=== PATIENT | male | born 1945 | race Caucasian/White ===

== ENCOUNTER → 2017-04-24 | Outpatient (CLI) | payer OTHER ==
[~2017-04-24] MED LIST: CLOT-40 TOP; FINA5TAB4 PO; GABA1CAP PO; INSHI7030 SC; INSUINJ17 SC; LISI-725 PO; METO25TA56 PO; NITR0.4S UT; NRV/5 PO; PRAV40TA2 PO; PRLSR20 PO; WARF10TA4 PO; WARF7.5T4 PO
[2017-04-24 18:15] LABS: CHOLESTEROL/HDL RATIO 5.4; THYROID STIMULATING HORMONE 0.679 uIu/ml (0.300-4.500)
[2017-04-25 08:01] LABS: ESTIMATED AVERAGE GLUCOSE 214 mg/dl; HA1C FLAG Normal (Normal)
== END | disposition home or self-care (01) ==
LOC: C.LABMFLN 13:26
PROVIDERS: ATTEND Family Medicine
DX: I10 Essential (primary) hypertension (principal); E11.9 Type 2 diabetes mellitus without complications; I35.0 Nonrheumatic aortic (valve) stenosis; I65.29 Occlusion and stenosis of unspecified carotid artery; Z86.718 Personal history of other venous thrombosis and embolism

== ENCOUNTER → 2017-06-13 | Outpatient (CLI) | payer OTHER ==
[~2017-06-13] MED LIST changes: -CLOT-40 TOP; +CLOT1CRE4 TOP
[2017-06-13 18:15] LABS: BLOOD UREA NITROGEN 16 mg/dl (7-18); BUN/CREATININE RATIO 16.5 (10-20); CALCIUM 9.7 mg/dl (8.5-10.1); CARBON DIOXIDE 31 mmol/L (21-32); CHLORIDE 100 mmol/L (98-107); CREATININE 0.97 mg/dl (0.60-1.40); GLUCOSE 222 mg/dl (70-99); POTASSIUM 4.3 mmol/L (3.5-5.1); SODIUM 137 mmol/L (136-145)
== END | disposition home or self-care (01) ==
LOC: C.LABMFLN 12:27
PROVIDERS: ATTEND Family Medicine
DX: I10 Essential (primary) hypertension (principal); E11.9 Type 2 diabetes mellitus without complications; E78.00 Pure hypercholesterolemia, unspecified; E11.21 Type 2 diabetes mellitus with diabetic nephropathy; I82.4Z9 Acute embolism and thrombosis of unspecified deep veins of unspecified distal lower extremity

== ENCOUNTER → 2017-06-27 | Outpatient (CLI) | payer OTHER ==
[2017-06-27 18:50] LABS: URINE PROTIEN/CREAT RATIO 3.3 (0-0.2); URINE TOTAL PROTEIN 234.3 mg/dl (0-11.9)
[2017-06-27 18:59] LABS: URINE APPEARANCE CLEAR (CLEAR); URINE BILIRUBIN NEG (NEG); URINE COLOR YELLOW; URINE EPITHELIAL CELL AUTO 0-5 /lpf (0-5); URINE NITRITE NEG (NEG); URINE PH 6.5 (4.5-7.5); URINE SPECIFIC GRAVITY 1.021 (1.000-1.030); UROBILINOGEN NEG (NEG)
[2017-06-27 19:05] LABS: MANUAL MICROSCOPIC REQUIRED? NO; REVIEW REQ? NO
[2017-07-01 10:53] LABS: FREE KAPPA 26.1 MG/L (3.3-19.4); FREE KAPPA/LAMBDA RATIO 1.18 (0.26-1.65); FREE LAMBDA 22.2 MG/L (5.7-26.3)
[2017-07-01 15:30] LABS: ALBUMIN 4.1 G/DL (3.8-4.8); GAMMA GLOBULIN 0.9 G/DL (0.8-1.7)
[2017-07-02 05:39] LABS: ALBUMIN % 73.59 %; ALPHA-2-GLOBULIN % 4.31 %; BETA GLOBULIN % 9.35 %; CREATININE UR 79 MG/DL (20-370); GAMMA GLOBULIN % 6.95 %
== END | disposition home or self-care (01) ==
LOC: C.LABMFLN 11:47
PROVIDERS: ATTEND Internal Medicine Nephrology
DX: R80.9 Proteinuria, unspecified (principal); I82.4Z9 Acute embolism and thrombosis of unspecified deep veins of unspecified distal lower extremity

== ENCOUNTER → 2018-01-14 | Outpatient (CLI) | payer OTHER ==
[~2018-01-14] MED LIST changes: +CLOT-51 TOP; -CLOT1CRE4 TOP; +GABA100C13 PO; -GABA1CAP PO
[2018-01-14 19:01] LABS: ALBUMIN 3.8 gm/dl (3.4-5.0); ALT/SGPT 21 U/L (12-78); AST/SGOT 11 U/L (15-37); BLOOD UREA NITROGEN 40 mg/dl (7-18); CALCIUM 10.2 mg/dl (8.5-10.1); CARBON DIOXIDE 32 mmol/L (21-32); CHOLESTEROL 151 mg/dl (0-200); CREATININE 1.18 mg/dl (0.60-1.40); GLUCOSE 149 mg/dl (70-99); POTASSIUM 4.6 mmol/L (3.5-5.1); SODIUM 138 mmol/L (136-145)
[2018-01-14 19:04] LABS: ALKALINE PHOSPHATASE 85 U/L (45-117); LDL CHOLESTEROL (DIRECT) 76 mg/dl; TOTAL PROTEIN 7.7 gm/dl (6.4-8.2)
== END | disposition home or self-care (01) ==
LOC: C.LABMFLN 10:49
PROVIDERS: ATTEND Family Medicine
DX: E11.9 Type 2 diabetes mellitus without complications (principal); E78.00 Pure hypercholesterolemia, unspecified; K21.9 Gastro-esophageal reflux disease without esophagitis; R93.5 Abnormal findings on diagnostic imaging of other abdominal regions, including retroperitoneum; I10 Essential (primary) hypertension

== ENCOUNTER 2022-04-02 21:12 | Observation (INO) ==
[2022-04-02] MEDS ORDERED: CEFEPIME 2,000 MG/20 ML VIAL IV STA (21:50)
[2022-04-02] MEDS ORDERED: ACETAMINOPHEN 500 MG TAB PO STA (21:51)
[2022-04-02] MEDS ORDERED: SODIUM CHLORIDE 0.9% 1000ML 1,000 ML IV SCH (22:00)
--- NOTE | 2022-04-02 22:05 | Emergency Department Note ---
Impression & Plan Weakness, Fever, Pneumonia, Atrial flutter with rapid ventricular response, Hypomagnesemia ED Provider Note NAME: CANDICE SEWELL AGE: 76 SEX: M : 1945 ARRIVES VIA: Ambulance INFORMANT: [Patient] ED PROVIDER(S): [Dago Pierce MD] CHIEF COMPLAINT: Illness HISTORY OF PRESENT ILLNESS: The patient is a 76-year-old male who has had several days of weakness and fatig ue. He just has no energy. He has had a mildly productive cough and some mild shortness of breath. Today, he was noted to have a fever. There has been no tick bite, no rash. No vomiting or diarrhea. The patient was recently in the hospital for pneumonia, he was discharged from [facility] about 10 days ago. Patient states his temperature was about 101. He presents by ambulance. REVIEW OF SYSTEMS: See HPI for pertinent positives and negatives. A total of ten systems were reviewed and were otherwise negative. PMHx/PSHx: See Below SOCIAL HISTORY: See Below. PHYSICAL EXAM: GENERAL: Patient is in no acute distress. HEENT: No acute trauma, normocephalic atraumatic, mucous membranes moist, no nasal congestion, no scleral icterus. NECK: No stridor, no adenopathy, no meningismus, trachea is midline. LUNGS: Crackles and wheezes heard in the right lower lung, the left lung seems clear. No respiratory distress. HEART: Tachycardic, no obvious murmur, regular rhythm. ABDOMEN: Soft, nontender, bowel sounds positive, no peritonitis. EXTREMITIES: No cyanosis. 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 There is some mild right lower extremity edema NEUROLOGIC: Oriented x 3, no acute motor or sensory deficits, no focal weakness. SKIN: No rash, no jaundice, no diaphoresis. DIFFERENTIAL DIAGNOSIS: Sepsis, UTI, pneumonia, COVID-19, influenza, dysrhythmia, metabolic abnormality, electrolyte abnormalities, cardiac sources, cellulitis, bacteremia, intracerebral event, toxicologic etiology, neurologic event, as well as other pathologies. EMERGENCY DEPARTMENT COURSE/PROCEDURES: ECG: Indication was potential sepsis. The ECG shows a sinus tachycardia versus a rapid atrial flutter with a rate of 126. There is some nonspecific ST change. There is a potential old inferior infarct. No ST elevation, no PVCs. The QTc is 440. Repeat ECG: Indication was tachycardia. The ECG shows atrial flutter with a variable block. The rate is 101. There is no ST elevation, no PVCs. The QTc is 469. Compared to the earlier ECG, the rate has decreased and the atrial flutter rhythm is much more apparent. Continuous Cardiac Monitoring: An order was placed for continuous cardiac monitoring. The monitor shows a rate of 127 with sinus tachycardia. Critical Care Note: I have personally spent 52 minutes of critical care time in the direct management of this patient. This includes bedside care, interpretation of diagnostic studies, and testing, discussion with consultants, patient, and family members, and other required patient management activities. This 52 minutes is in excess of all separately billable procedures. MEDICAL DECISION MAKING: There is no leukocytosis. The patient has a mild anemia with a hemoglobin of 11.8. There is a normal platelet count. INR is slightly elevated at 1.3, likely from his Eliquis use. Initial glucose was recorded at 43, a repeat bedside glucose showed a value of 133. There was no renal failure. Lactic acid level was not elevated making severe sepsis less likely. Magnesium was low at 1.1. No concerning liver enzyme elevation. Procalcitonin level was not elevated. ECG shows a rapid atrial flutter, no obvious acute ischemia. There was some slight elevation to the troponin, likely secondary to mismatch. The troponin will need to be trended. Urinalysis does not show infection. Respiratory bio fire testing shows adenovirus. Lyme disease testing was positive for IgG, negative for IgM. Chest film shows what appears to be a bilateral lower lung pneumonia. On exam, the patient was febrile, he was tachycardic. The patient received IV saline, 1 L. He was given IV cefepime as antibiotic coverage. He received oral Tylenol for his fever. Patient's heart rate has improved. He is resting comfortably. He will require a hospital stay for his findings. He has a low magnesium, he is febrile, he is short of breath and coughing with potential pneumonia on x-ray. He is adenovirus positive by respiratory bio fire testing. I did speak with the case management team, the on-call hospitalist was consulted. The patient is aware of his need for a hospital stay. 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 [address] [place] Family History Brother Liver cancer Coronary heart disease Diabetes Father Cancer Diabetes Coronary heart disease Mother Diabetes Brother Coronary heart disease Myocardial infarction Denies family history of Ovarian cancer Prostate cancer Breast cancer Colorectal cancer Social History Smoking Status: Never smoker Age Started Using Tobacco: 17; Age Quit Using Tobacco: 59; packs per day: 2; Second Hand Exposure: Yes; Hx Alcohol Use: No Hx Substance Use: No Preferred Language: Bengali Communication Ability: Effective Visual Impairment: Partially Limited Hearing Ability: Use of Hearing Aid marital status: Single Current Living Situation: Alone current occupational status: retired Feels Safe at Home: Yes Childhood Exposure to Second-Hand Smoke: Yes caffeine: Yes (coffee) Dental Care, Regularly: No Physical Activity Frequency: Does not Exercise Physical Activity Frequency Comment: uses a cane Seatbelt Use: sometimes Sunscreen Use: No Do you think of yourself as: straight/heterosexual Allergies Allergies Allergy/AdvReac Type Severity Reaction Status Date / Time No Known Drug Allergies Allergy Verified 04/03/22 00:52 Home Meds Home Medications Medication Instructions Recorded Confirmed ascorbic acid (vitamin C) 1,000 mg 1 gm PO DAILY tab 04/13/19 04/02/22 tablet folic acid 800 mcg tablet 0.8 mg PO DAILY tab 04/13/19 04/02/22 aspirin 81 mg tablet,delayed 81 mg PO DAILY tab 04/17/19 04/02/22 release semaglutide 1 mg/dose (2 mg/1.5 1 mg SQ WK ml 10/05/20 04/03/22 mL) subcutaneous pen injector (Ozempic) apixaban 5 mg tablet (Eliquis) 5 mg PO BID 06/19/21 04/02/22 amoxicillin 875 mg-potassium 1 tab PO BID 03/26/22 04/02/22 clavulanate 125 mg tablet finasteride 5 mg tablet 5 mg PO DAILY 04/02/22 04/02/22 omeprazole 20 mg capsule,delayed 20 mg PO DAILY 04/02/22 04/02/22 release gabapentin 100 mg capsule 100 mg PO TID 04/03/22 04/03/22 insulin aspart U-100 100 unit/mL 18 unit SUBCUT TIDM 04/03/22 04/03/22 subcutaneous cartridge insulin degludec 200 unit/mL (3 78 unit SUBCUT HS 04/03/22 04/03/22 mL) subcutaneous pen (Tresiba FlexTouch U-200 insulin) metformin 500 mg tablet,extended 1,000 mg PO DAILYBD 04/03/22 04/03/22 release 24 hr metoprolol succinate 100 mg 50 mg PO QAM 04/03/22 04/03/22 tablet,extended release 24 hr Previous Rx's Medication Instructions Recorded insulin admin supplies #1 ea 04/17/19 lancets 30 gauge (OneTouch Delica #100 ea 12/30/19 Lancets) flash glucose scanning reader #1 ea 11/18/20 (FreeStyle [place] 14 Day [place]) flash glucose sensor (Joincube.comStyle #1 ea 11/18/20 [place] 14 Day Sensor) Left prosthetic limb K3 #1 ea 03/08/21 atorvastatin 40 mg tablet 40 mg PO DAILY #90 tab 09/05/21 Results & Data (ED) Vital Signs Vital Signs - 24 hr 04/02/22 21:18 04/02/22 22:20 04/02/22 22:43 Temperature 38.4 C H 38.4 C H Temperature Source Oral Oral Pulse Rate 127 H Pulse Rate [Right Finger] 125 H 124 H Pulse Rhythm [Right Finger] Regular Respiratory Rate 24 18 20 Respiratory Depth Normal Blood Pressure 132/74 Blood Pressure [Right Arm] 118/63 119/69 Blood Pressure Mean 93 Blood Pressure Mean [Right Arm] 81 85 Pulse Oximetry 91 90 91 Oxygen Delivery Method Room Air Room Air Room Air Sepsis Recent Fever Within 48 Hours Yes Sepsis New/Unexplained Change in Mental Status No Sepsis Action Taken by Nursing No Action Required 04/02/22 23:00 04/02/22 23:15 04/02/22 23:30 Temperature Temperature Source Pulse Rate Pulse Rate [Right Finger] 114 H 115 H 127 H Pulse Rhythm [Right Finger] Respiratory Rate 22 24 22 Respiratory Depth Blood Pressure Blood Pressure [Right Arm] 105/71 106/77 140/85 Blood Pressure Mean Blood Pressure Mean [Right Arm] 82 86 103 Pulse Oximetry 93 93 92 Oxygen Delivery Method Room Air Room Air Room Air Sepsis Recent Fever Within 48 Hours Sepsis New/Unexplained Change in Mental Status Sepsis Action Taken by Long-Term Medications Current Medication List: was personally reviewed by me Laboratory Data Attestation: I reviewed the patient's lab results. Result diagrams: 04/02/22 20:50 04/02/22 20:50 Lab Results 04/02/22 04/02/22 04/02/22 Range/Units 20:50 20:50 20:50 WBC 7.65 (4.8-10.8) K/uL RBC 4.05 L (4.7-6.1) M/uL Hgb 11.8 L (14.0-18.0) g/dL Hct 36.5 L (42-52) % MCV 90.1 (80-100) fL MCH 29.1 (25-34) pg MCHC 32.3 (32-36) g/dL RDW Std Deviation 57.2 H (36.4-46.3) fL RDW Coeff of Freda 17.3 H (11.5-14.5) % Plt Count 189 (130-400) K/uL MPV 9.7 (7.4-10.4) fL Immature Gran % (Auto) 0.1 % Neut % (Auto) 69.1 % Lymph % (Auto) 15.9 % [place] % (Auto) 14.5 % Eos % (Auto) 0.3 % Baso % (Auto) 0.1 % Neut # (Auto) 5.28 (1.4-6.5) K/uL Lymph # (Auto) 1.22 (1.2-3.4) K/uL [place] # (Auto) 1.11 H (0.11-0.59) K/uL Eos # (Auto) 0.02 (0-0.5) K/uL Baso # (Auto) 0.01 (0-0.2) K/uL Immature Gran # (Auto) 0.01 (0.00-0.02) K/uL PT 13.5 H (9.0-12.0) Seconds INR 1.3 H (0.9-1.1) APTT 38.3 H (21.0-31.0) Seconds PTT Ratio 1.4 Sodium 133 L (136-145) mmol/L Potassium 4.2 (3.5-5.1) mmol/L Chloride 101 (98-107) mmol/L Carbon Dioxide 24 (21-32) mmol/L Anion Gap 8 (3-11) BUN 23 (6-23) mg/dl Creatinine 1.26 (0.6-1.4) mg/dl Est Cr Clr Drug Dosing 57.9 ml/min Est GFR ( Amer) 64.2 ml/min Est GFR (Non-Af Amer) 55.4 ml/min BUN/Creatinine Ratio 18.3 (10-20) Glucose 43 L* (70-99(Fasting)) mg/dl POC Glucose (70-99) mg/dl Lactate (0.4-2.0) mmol/L Calcium 9.1 (8.5-10.1) mg/dl Magnesium 1.1 L (1.7-2.4) mg/dl Total Bilirubin 0.8 (0.2-1.0) mg/dl AST 26 (13-39) U/L ALT 21 (7-52) U/L Alkaline Phosphatase 62 (34-104) U/L Troponin I High Sens 25.4 H (0-20) pg/ml Total Protein 7.1 (6.0-8.3) gm/dl Albumin 3.6 (3.4-5.0) gm/dl Globulin 3.5 (2.5-4.0) gm/dl Albumin/Globulin Ratio 1.0 (0.9-2) Procalcitonin (0-0.5) ng/ml Urine Color Urine Appearance (Clear) Urine pH (4.5-7.5) Ur Specific [place] (1.000-1.030) Urine Protein (Negative) Urine Glucose (UA) (Negative) Urine Ketones (Negative) Urine Blood (Negative) Urine Nitrite (Negative) Urine Bilirubin (Negative) Urine Urobilinogen (Negative) Ur Leukocyte Esterase (Negative) Urine WBC (Auto) (0-5) /hpf Urine RBC (Auto) (0-4) /hpf U Hyaline Cast (Auto) (0-5) /lpf U Epithel Cells (Auto) (0-5) /lpf Urine Bacteria (Auto) (Negative) Adenovirus (PCR) (NotDetected) B. pertussis DNA (PCR) (NotDetected) B.parapertussis DNA PCR (NotDetected) Lyme Disease IgG Ab (Negative) Lyme Disease IgM Ab (Negative) C. pneumoniae DNA (PCR) (NotDetected) Coronavirus OC43 (PCR) (NotDetected) Coronavirus HKU1 (PCR) (NotDetected) Coronavirus 229E (PCR) (NotDetected) SARS-CoV-2 (PCR) (NotDetected) Coronavirus NL63 (PCR) (NotDetected) Human Metapneumovir PCR (NotDetected) Influenza Type A (PCR) (NotDetected) Influenza Type B (PCR) (NotDetected) M. pneumoniae (PCR) (NotDetected) Parainfluenza 1 (PCR) (NotDetected) Parainfluenza 2 (PCR) (NotDetected) Parainfluenza 3 (PCR) (NotDetected) Parainfluenza 4 (PCR) (NotDetected) RSV (PCR) (NotDetected) Entero/Rhino (PCR) (NotDetected) 04/02/22 04/02/22 04/02/22 Range/Units 20:50 21:18 22:02 WBC (4.8-10.8) K/uL RBC (4.7-6.1) M/uL Hgb (14.0-18.0) g/dL Hct (42-52) % MCV (80-100) fL MCH (25-34) pg MCHC (32-36) g/dL RDW Std Deviation (36.4-46.3) fL RDW Coeff of Freda (11.5-14.5) % Plt Count (130-400) K/uL MPV (7.4-10.4) fL Immature Gran % (Auto) % Neut % (Auto) % Lymph % (Auto) % [place] % (Auto) % Eos % (Auto) % Baso % (Auto) % Neut # (Auto) (1.4-6.5) K/uL Lymph # (Auto) (1.2-3.4) K/uL [place] # (Auto) (0.11-0.59) K/uL Eos # (Auto) (0-0.5) K/uL Baso # (Auto) (0-0.2) K/uL Immature Gran # (Auto) (0.00-0.02) K/uL PT (9.0-12.0) Seconds INR (0.9-1.1) APTT (21.0-31.0) Seconds PTT Ratio Sodium (136-145) mmol/L Potassium (3.5-5.1) mmol/L Chloride (98-107) mmol/L Carbon Dioxide (21-32) mmol/L Anion Gap (3-11) BUN (6-23) mg/dl Creatinine (0.6-1.4) mg/dl Est Cr Clr Drug Dosing ml/min Est GFR ( Amer) ml/min Est GFR (Non-Af Amer) ml/min BUN/Creatinine Ratio (10-20) Glucose (70-99(Fasting)) mg/dl POC Glucose 133 H (70-99) mg/dl Lactate 0.8 (0.4-2.0) mmol/L Calcium (8.5-10.1) mg/dl Magnesium (1.7-2.4) mg/dl Total Bilirubin (0.2-1.0) mg/dl AST (13-39) U/L ALT (7-52) U/L Alkaline Phosphatase (34-104) U/L Troponin I High Sens (0-20) pg/ml Total Protein (6.0-8.3) gm/dl Albumin (3.4-5.0) gm/dl Globulin (2.5-4.0) gm/dl Albumin/Globulin Ratio (0.9-2) Procalcitonin < 0.05 (0-0.5) ng/ml Urine Color Urine Appearance (Clear) Urine pH (4.5-7.5) Ur Specific [place] (1.000-1.030) Urine Protein (Negative) Urine Glucose (UA) (Negative) Urine Ketones (Negative) Urine Blood (Negative) Urine Nitrite (Negative) Urine Bilirubin (Negative) Urine Urobilinogen (Negative) Ur Leukocyte Esterase (Negative) Urine WBC (Auto) (0-5) /hpf Urine RBC (Auto) (0-4) /hpf U Hyaline Cast (Auto) (0-5) /lpf U Epithel Cells (Auto) (0-5) /lpf Urine Bacteria (Auto) (Negative) Adenovirus (PCR) (NotDetected) B. pertussis DNA (PCR) (NotDetected) B.parapertussis DNA PCR (NotDetected) Lyme Disease IgG Ab Positive A (Negative) Lyme Disease IgM Ab Negative (Negative) C. pneumoniae DNA (PCR) (NotDetected) Coronavirus OC43 (PCR) (NotDetected) Coronavirus HKU1 (PCR) (NotDetected) Coronavirus 229E (PCR) (NotDetected) SARS-CoV-2 (PCR) (NotDetected) Coronavirus NL63 (PCR) (NotDetected) Human Metapneumovir PCR (NotDetected) Influenza Type A (PCR) (NotDetected) Influenza Type B (PCR) (NotDetected) M. pneumoniae (PCR) (NotDetected) Parainfluenza 1 (PCR) (NotDetected) Parainfluenza 2 (PCR) (NotDetected) Parainfluenza 3 (PCR) (NotDetected) Parainfluenza 4 (PCR) (NotDetected) RSV (PCR) (NotDetected) Entero/Rhino (PCR) (NotDetected) 04/02/22 04/02/22 Range/Units 22:02 23:30 WBC (4.8-10.8) K/uL RBC (4.7-6.1) M/uL Hgb (14.0-18.0) g/dL Hct (42-52) % MCV (80-100) fL MCH (25-34) pg MCHC (32-36) g/dL RDW Std Deviation (36.4-46.3) fL RDW Coeff of Freda (11.5-14.5) % Plt Count (130-400) K/uL MPV (7.4-10.4) fL Immature Gran % (Auto) % Neut % (Auto) % Lymph % (Auto) % [place] % (Auto) % Eos % (Auto) % Baso % (Auto) % Neut # (Auto) (1.4-6.5) K/uL Lymph # (Auto) (1.2-3.4) K/uL [place] # (Auto) (0.11-0.59) K/uL Eos # (Auto) (0-0.5) K/uL Baso # (Auto) (0-0.2) K/uL Immature Gran # (Auto) (0.00-0.02) K/uL PT (9.0-12.0) Seconds INR (0.9-1.1) APTT (21.0-31.0) Seconds PTT Ratio Sodium (136-145) mmol/L Potassium (3.5-5.1) mmol/L Chloride (98-107) mmol/L Carbon Dioxide (21-32) mmol/L Anion Gap (3-11) BUN (6-23) mg/dl Creatinine (0.6-1.4) mg/dl Est Cr Clr Drug Dosing ml/min Est GFR ( Amer) ml/min Est GFR (Non-Af Amer) ml/min BUN/Creatinine Ratio (10-20) Glucose (70-99(Fasting)) mg/dl POC Glucose (70-99) mg/dl Lactate (0.4-2.0) mmol/L Calcium (8.5-10.1) mg/dl Magnesium (1.7-2.4) mg/dl Total Bilirubin (0.2-1.0) mg/dl AST (13-39) U/L ALT (7-52) U/L Alkaline Phosphatase (34-104) U/L Troponin I High Sens (0-20) pg/ml Total Protein (6.0-8.3) gm/dl Albumin (3.4-5.0) gm/dl Globulin (2.5-4.0) gm/dl Albumin/Globulin Ratio (0.9-2) Procalcitonin (0-0.5) ng/ml Urine Color Yellow Urine Appearance Clear (Clear) Urine pH 5.0 (4.5-7.5) Ur Specific [place] 1.014 (1.000-1.030) Urine Protein 3+ H (Negative) Urine Glucose (UA) Negative (Negative) Urine Ketones Negative (Negative) Urine Blood Negative (Negative) Urine Nitrite Negative (Negative) Urine Bilirubin Negative (Negative) Urine Urobilinogen Negative (Negative) Ur Leukocyte Esterase Negative (Negative) Urine WBC (Auto) 1-5 (0-5) /hpf Urine RBC (Auto) 0-4 (0-4) /hpf U Hyaline Cast (Auto) 1-5 (0-5) /lpf U Epithel Cells (Auto) 10-20 H (0-5) /lpf Urine Bacteria (Auto) Negative (Negative) Adenovirus (PCR) DETECTED A* (NotDetected) B. pertussis DNA (PCR) Not Detected (NotDetected) B.parapertussis DNA PCR Not Detected (NotDetected) Lyme Disease IgG Ab (Negative) Lyme Disease IgM Ab (Negative) C. pneumoniae DNA (PCR) Not Detected (NotDetected) Coronavirus OC43 (PCR) Not Detected (NotDetected) Coronavirus HKU1 (PCR) Not Detected (NotDetected) Coronavirus 229E (PCR) Not Detected (NotDetected) SARS-CoV-2 (PCR) Not Detected (NotDetected) Coronavirus NL63 (PCR) Not Detected (NotDetected) Human Metapneumovir PCR Not Detected (NotDetected) Influenza Type A (PCR) Not Detected (NotDetected) Influenza Type B (PCR) Not Detected (NotDetected) M. pneumoniae (PCR) Not Detected (NotDetected) Parainfluenza 1 (PCR) Not Detected (NotDetected) Parainfluenza 2 (PCR) Not Detected (NotDetected) Parainfluenza 3 (PCR) Not Detected (NotDetected) Parainfluenza 4 (PCR) Not Detected (NotDetected) RSV (PCR) Not Detected (NotDetected) Entero/Rhino (PCR) Not Detected (NotDetected) Administered Medications Discontinued Medications Acetaminophen (Acetaminophen 500 Mg Tab) 1,000 mg PO NOW STA Stop: 04/02/22 21:52 Last Admin: 04/02/22 22:16 Dose: 1,000 mg Documented by: [id number] Sodium Chloride (Nss 1000ml) 1,000 mls @ 999 mls/hr IV .[id number] Stop: 04/02/22 23:00 Last Infusion: 04/02/22 23:40 Dose: 0 mls/hr Documented by: [id number] Admin: 04/02/22 22:19 Dose: 999 mls/hr Documented by: [id number] Cefepime HCl (Maxipime) 2,000 mg in 20 mls @ 5 mls/min IV NOW STA; Protocol Stop: 04/02/22 21:53 Last Admin: 04/02/22 22:17 Dose: 5 mls/min Documented by: [id number] Imaging Data Attestation: I personally reviewed and interpreted this imaging study as follows: My Impression: Chest x-ray: Per my review there appears to be a bilateral lower lung pneumonia, no pneumothorax, no CHF Discharge Plan Visit Data Chief Complaint: Illness Stated Complaint: Hypoglycemia, Cough, Afib ED Provider: Dago Pierce Discharge Problem: Weakness, Fever, Pneumonia, Atrial flutter with rapid ventricular response, Hypomagnesemia Patient Disposition: Admitted As Inpatient Condition: Fair Discharge Instructions Interventions: ED Discharge Assessment Last Done: 04/03/22 01:40
[2022-04-02 22:08] LABS: Basophils # (auto) 0.01 K/uL (0-0.2); Basophils % (auto) 0.1 %; Eosinophils # (auto) 0.02 K/uL (0-0.5); Eosinophils % (auto) 0.3 %; Hematocrit (blood only) 36.5 % (42-52); Hemoglobin 11.8 g/dL (14.0-18.0); Immature Granulocytes # (auto) 0.01 K/uL (0.00-0.02); Immature Granulocytes % (auto) 0.1 %; Lymphocytes # (auto) 1.22 K/uL (1.2-3.4); Lymphocytes % (auto) 15.9 %; Mean Corpuscular Hemoglobin 29.1 pg (25-34); Mean Corpuscular Hgb Conc 32.3 g/dL (32-36); Mean Corpuscular Volume 90.1 fL (80-100); Mean Platelet Volume 9.7 fL (7.4-10.4); Monocytes # (auto) 1.11 K/uL (0.11-0.59); Monocytes % (auto) 14.5 %; Neutrophils # (auto) 5.28 K/uL (1.4-6.5); Neutrophils % (auto) 69.1 %; Platelet Count 189 K/uL (130-400); RDW Coefficient of Variation 17.3 % (11.5-14.5); RDW Standard Deviation 57.2 fL (36.4-46.3); Red Blood Count 4.05 M/uL (4.7-6.1); White Blood Count 7.65 K/uL (4.8-10.8)
[2022-04-02 22:25] LABS: INR 1.3 (0.9-1.1); Partial Thromboplastin Ratio 1.4; Partial Thromboplastin Time 38.3 Seconds (21.0-31.0); Prothrombin Time 13.5 Seconds (9.0-12.0)
[2022-04-02 22:50] LABS: Albumin Level 3.6 gm/dl (3.4-5.0); BUN Creatinine Ratio 18.3 (10-20); Bilirubin,Total 0.8 mg/dl (0.2-1.0); Calcium 9.1 mg/dl (8.5-10.1); Creatinine Clr Calc Pharmacy 57.9 ml/min; Est GFR (African American) 64.2 ml/min; Est GFR (Non-African American) 55.4 ml/min; Globulin 3.5 gm/dl (2.5-4.0); Magnesium 1.1 mg/dl (1.7-2.4); Potassium 4.2 mmol/L (3.5-5.1); Total Protein 7.1 gm/dl (6.0-8.3); Troponin I High Sensitivity 25.4 pg/ml (0-20)
[2022-04-02 22:53] LABS: Procalcitonin < 0.05 ng/ml (0-0.5)
[2022-04-02 22:59] LABS: Lyme Ab IgM w/WB Rflx Negative (Negative)
[2022-04-02 23:08] LABS: Lyme Ab IgG w/WB Rflx Positive (Negative)
[2022-04-02 23:33] LABS: Bordetella parapertussis PCR Not Detected (NotDetected); Bordetella pertussis PCR Not Detected (NotDetected); Chlamydia pneumoniae PCR Not Detected (NotDetected); Coronavirus 229E PCR Not Detected (NotDetected); Coronavirus CoV-2 (COVID19)PCR Not Detected (NotDetected); Coronavirus HKU1 PCR Not Detected (NotDetected); Coronavirus NL63 PCR Not Detected (NotDetected); Coronavirus OC43PCR Not Detected (NotDetected); Human Metapneumovirus PCR Not Detected (NotDetected); Influenza A PCR Not Detected (NotDetected); Influenza B PCR Not Detected (NotDetected); Mycoplasma pneumoniae PCR Not Detected (NotDetected); Parainfluenza Virus 1 PCR Not Detected (NotDetected); Parainfluenza Virus 2 PCR Not Detected (NotDetected); Parainfluenza Virus 3 PCR Not Detected (NotDetected); Parainfluenza Virus 4 PCR Not Detected (NotDetected); Respiratory Syncytial VirusPCR Not Detected (NotDetected); Rhinovirus/Enterovirus PCR Not Detected (NotDetected)
[2022-04-02 23:55] LABS: Appearance Urine Clear (Clear); Bacteria Urine Automated Negative (Negative); Bilirubin Urine Negative (Negative); Blood Urine Negative (Negative); Color Urine Yellow; Glucose Urine UA Negative (Negative); Ketones Urine Negative (Negative); Leukocyte Esterase Urine Negative (Negative); Nitrite Urine Negative (Negative); Protein Urine 3+ (Negative); RBC Urine Automated 0-4 /hpf (0-4); Specific Gravity Urine 1.014 (1.000-1.030); Urobilinogen Urine Negative (Negative)
[2022-04-03 00:10] LABS: Adenovirus PCR DETECTED (NotDetected)
--- NOTE | 2022-04-03 00:53 | History & Physical Report ---
Date of Service April 03, 2022 Assessment & Plan (1) Fever: Plan: 76yo male with history of HTN, DM, HLP, COPD and Atrial flutter presenting with fever. Patient recently hospitalized at [facility] with sepsis and PNA. Patient with fever prior to admission, persistent cough productive for green sputum. Patient was treated with Zosyn and Augmentin for PNA. Now with Adenovirus + as well as lyme IgG -Follow cultures -Tylenol as needed -Empiric doxycycline 100mg po BID -Supportive care (2) COPD (chronic obstructive pulmonary disease): Plan: Patient with diffuse wheezing, cough -Continue Anoro -Albuterol as needed -Supplemental O2 as needed (3) PAF (paroxysmal atrial fibrillation): Plan: Elevated HR presently -Continue metoprolol XL 50mg po daily -Continue Apixaban 5mg po BID (4) Diabetes: Plan: Hypoglycemic on arrival. Patient is on Tresiba 66u daily -Lantus 33u BID -ISS -Monitor blood sugars -Continue Gabapentin for neuropathy (5) CAD (coronary artery disease): Plan: Patient with CAD s/p CABG, s/p stent placement -Continue ASA 81mg po daily -Continue Atorvastatin 40mg po daily -Continue Metoprolol XL 50mg po daily -Patient was previously on Lisinopril which was discontinued due to NINA and low blood pressure (6) Hypercholesterolemia: Plan: Chronic -Continue Atorvastatin (7) Hypertension: Plan: Blood pressure WNL -Continue metoprolol -Was previously on Lisinopril and Amlodipine which have been discontinued (8) Hypomagnesemia: Plan: Repletion ordered x 5 gm -Repeat Mg in AM Plan: F/E/N - Heplock. Mg repletion with repeat in AM. CC diet as tolerated Ppx - On Apixaban Code - Full per discussion with patient Dispo - Admit to medical with telemetry PT/OT evaluation for possible placement needs History of Present Illness Chief Complaint: fever, cough Primary Care Provider: Luan Pelaez MD Cameron Ernandez is a 76yo male with history of atrial flutter, HTN, DM, FAIZA, HLP and COPD presenting with fever, tachycardia, weakness and cough. Patient was recently admitted to [facility] from 03/19/22 - 03/23/22 after presenting with lightheadedness, blurry vision and dizziness. He was found to be hypotensive and in atrial flutter with a slow ventricular rate in the 30's. He was started on dopamine infusion and admitted to the MICU. Labs at that time significant for BNP of 3018, Cr of 6.9 and Lactate of 2.1 He was managed with IV Zosyn for suspected PNA. He was discharged home to complete a course of Augmentin. Torsemide, Cardizem and Lisinopril held on discharge home. Patient was discharged home on 03/23/22. He reports feeling weak and fatigued since arriving home, unsteadiness on his feet and difficulty with ambulation. He meier an ongoing cough productive for green sputum as well as fever for several days. His neighbor measured his temperature to be 101 today. He has had some diarrhea. Otherwise denies chest pain, palpitations, SOB, abdominal pain, nausea, vomiting, constipation. He had low blood sugar today on arrival at - reports feeling sweaty and shaky during this episode. IN the ER patient febrile, tachycardic, BP stable. No respiratory distress - saturating 92% on room air. ER Course: Tylenol, Cefepime Allergies Allergy/AdvReac Type Severity Reaction Status Date / Time No Known Drug Allergies Allergy Verified 04/03/22 00:52 Home Medications Medication Instructions Recorded Confirmed Type ascorbic acid (vitamin C) 1,000 mg 1 gm PO DAILY tab 04/13/19 04/02/22 History tablet folic acid 800 mcg tablet 0.8 mg PO DAILY tab 04/13/19 04/02/22 History aspirin 81 mg tablet,delayed 81 mg PO DAILY tab 04/17/19 04/02/22 History release insulin admin supplies #1 ea 04/17/19 03/30/22 Rx lancets 30 gauge (OneTouch Delica #100 ea 12/30/19 03/30/22 Rx Lancets) semaglutide 1 mg/dose (2 mg/1.5 1 mg SQ WK ml 10/05/20 04/03/22 History mL) subcutaneous pen injector (Teralynk) flash glucose scanning reader #1 ea 11/18/20 03/30/22 Rx (FreeStyle Desean 14 Day Parkin) flash glucose sensor (FreeStyle #1 ea 11/18/20 03/30/22 Rx Desean 14 Day Sensor) Left prosthetic limb K3 #1 ea 03/08/21 03/30/22 Rx apixaban 5 mg tablet (Eliquis) 5 mg PO BID 06/19/21 04/02/22 History atorvastatin 40 mg tablet 40 mg PO DAILY #90 tab 09/05/21 04/02/22 Rx amoxicillin 875 mg-potassium 1 tab PO BID 03/26/22 04/02/22 History clavulanate 125 mg tablet finasteride 5 mg tablet 5 mg PO DAILY 04/02/22 04/02/22 History omeprazole 20 mg capsule,delayed 20 mg PO DAILY 04/02/22 04/02/22 History release gabapentin 100 mg capsule 100 mg PO TID 04/03/22 04/03/22 History insulin aspart U-100 100 unit/mL 18 unit SUBCUT TIDM 04/03/22 04/03/22 History subcutaneous cartridge insulin degludec 200 unit/mL (3 78 unit SUBCUT HS 04/03/22 04/03/22 History mL) subcutaneous pen (Tresiba FlexTouch U-200 insulin) metformin 500 mg tablet,extended 1,000 mg PO DAILYBD 04/03/22 04/03/22 History release 24 hr metoprolol succinate 100 mg 50 mg PO QAM 04/03/22 04/03/22 History tablet,extended release 24 hr Past Med/Surg History Medical History (Updated 04/03/22 @ 02:02 by Mary Jorgensen DO) Atrial flutter Benign essential hypertension COPD (chronic obstructive pulmonary disease) Diabetes mellitus type 1 History of shingles Hypercholesterolemia FAIZA (obstructive sleep apnea) refuses CPAP Surgical History (Updated 04/03/22 @ 01:50 by Mary Jorgensen DO) Amputation below knee History of aortic valve replacement History of cataract surgery bilateral History of cholecystectomy History of colonoscopy History of heart artery stent x3 S/P CABG (coronary artery bypass graft) 3V 2016 AVR bioprosthetic valve [address] [place] Family History Brother Liver cancer Coronary heart disease Diabetes Father Cancer Diabetes Coronary heart disease Mother Diabetes Brother Coronary heart disease Myocardial infarction Denies family history of Ovarian cancer Prostate cancer Breast cancer Colorectal cancer Social History Smoking Status: Never smoker Age Started Using Tobacco: 17; Age Quit Using Tobacco: 59; packs per day: 2; Second Hand Exposure: Yes; Hx Alcohol Use: No Hx Substance Use: No Preferred Language: Chinese Communication Ability: Effective Visual Impairment: Partially Limited Hearing Ability: Use of Hearing Aid marital status: Single Current Living Situation: Alone current occupational status: retired Feels Safe at Home: Yes Childhood Exposure to Second-Hand Smoke: Yes caffeine: Yes (coffee) Dental Care, Regularly: No Physical Activity Frequency: Does not Exercise Physical Activity Frequency Comment: uses a cane Seatbelt Use: sometimes Sunscreen Use: No Do you think of yourself as: straight/heterosexual Review of Systems Review of Systems: All systems reviewed & are unremarkable except as noted in HPI & below Physical Exam Physical Exam: General: patient resting comfortably, NAD, non-toxic in appearance, AA&O x 4 Skin: warm, dry, intact, no rashes or lesions HEENT: NC/AT, PERRL, EOMI, anicteric sclera, conjunctiva without injection, external ear normal to inspection and nontender, nares patent, moist mucus membranes, dentition intact, no oropharyngeal lesions, neck supple, trachea mid line, no LAD, no thyromegaly, no JVD Heart: +S1/S2, irregularly irregular,tachycardic, no m/r/g Lungs: equal air entry bilaterally, crackles in bilateral bases, diffuse end- expiratory wheezing Abd: +BS, soft, NT/ND, no masses/organomegaly/ascites Ext: warm, 2+ pulses in UE/LE bilaterally, no clubbing/cyanosis or edema Neuro: nonfocal, patient AA&O x 4, speech intact, no facial droop, moving all extremities on command with equal strength 5/5 Results & Data Results & Data ([facility]) Vital Signs (Past 12 Hours) Vital Signs Temp Pulse Pulse Resp BP BP Pulse Ox 04/02/22 23:30 127 H 22 140/85 92 04/02/22 23:15 115 H 24 106/77 93 04/02/22 23:00 114 H 22 105/71 93 04/02/22 22:43 124 H 20 119/69 91 04/02/22 22:20 38.4 C H 125 H 18 118/63 90 04/02/22 21:18 38.4 C H 127 H 24 132/74 91 Laboratory Results Laboratory Results WBC 7.65 K/uL (4.8-10.8) 04/02/22 20:50 RBC 4.05 M/uL (4.7-6.1) L 04/02/22 20:50 Hgb 11.8 g/dL (14.0-18.0) L 04/02/22 20:50 Hct 36.5 % (42-52) L 04/02/22 20:50 MCV 90.1 fL (80-100) 04/02/22 20:50 MCH 29.1 pg (25-34) 04/02/22 20:50 MCHC 32.3 g/dL (32-36) 04/02/22 20:50 RDW Std Deviation 57.2 fL (36.4-46.3) H 04/02/22 20:50 RDW Coeff of Freda 17.3 % (11.5-14.5) H 04/02/22 20:50 Plt Count 189 K/uL (130-400) 04/02/22 20:50 MPV 9.7 fL (7.4-10.4) 04/02/22 20:50 Immature Gran % (Auto) 0.1 % 04/02/22 20:50 Neut % (Auto) 69.1 % 04/02/22 20:50 Lymph % (Auto) 15.9 % 04/02/22 20:50 [place] % (Auto) 14.5 % 04/02/22 20:50 Eos % (Auto) 0.3 % 04/02/22 20:50 Baso % (Auto) 0.1 % 04/02/22 20:50 Neut # (Auto) 5.28 K/uL (1.4-6.5) 04/02/22 20:50 Lymph # (Auto) 1.22 K/uL (1.2-3.4) 04/02/22 20:50 [place] # (Auto) 1.11 K/uL (0.11-0.59) H 04/02/22 20:50 Eos # (Auto) 0.02 K/uL (0-0.5) 04/02/22 20:50 Baso # (Auto) 0.01 K/uL (0-0.2) 04/02/22 20:50 Immature Gran # (Auto) 0.01 K/uL (0.00-0.02) 04/02/22 20:50 PT 13.5 Seconds (9.0-12.0) H 04/02/22 20:50 INR 1.3 (0.9-1.1) H 04/02/22 20:50 APTT 38.3 Seconds (21.0-31.0) H 04/02/22 20:50 PTT Ratio 1.4 04/02/22 20:50 Sodium 133 mmol/L (136-145) L 04/02/22 20:50 Potassium 4.2 mmol/L (3.5-5.1) 04/02/22 20:50 Chloride 101 mmol/L (98-107) 04/02/22 20:50 Carbon Dioxide 24 mmol/L (21-32) 04/02/22 20:50 Anion Gap 8 (3-11) 04/02/22 20:50 BUN 23 mg/dl (6-23) 04/02/22 20:50 Creatinine 1.26 mg/dl (0.6-1.4) 04/02/22 20:50 Est Cr Clr Drug Dosing 57.9 ml/min 04/02/22 20:50 Est GFR ( Amer) 64.2 ml/min 04/02/22 20:50 Est GFR (Non-Af Amer) 55.4 ml/min 04/02/22 20:50 BUN/Creatinine Ratio 18.3 (10-20) 04/02/22 20:50 Glucose 43 mg/dl (70-99(Fasting)) L* 04/02/22 20:50 POC Glucose 133 mg/dl (70-99) H 04/02/22 21:18 Lactate 0.8 mmol/L (0.4-2.0) 04/02/22 22:02 Calcium 9.1 mg/dl (8.5-10.1) 04/02/22 20:50 Magnesium 1.1 mg/dl (1.7-2.4) L 04/02/22 20:50 Total Bilirubin 0.8 mg/dl (0.2-1.0) 04/02/22 20:50 AST 26 U/L (13-39) 04/02/22 20:50 ALT 21 U/L (7-52) 04/02/22 20:50 Alkaline Phosphatase 62 U/L (34-104) 04/02/22 20:50 Troponin I High Sens 25.4 pg/ml (0-20) H 04/02/22 20:50 Total Protein 7.1 gm/dl (6.0-8.3) 04/02/22 20:50 Albumin 3.6 gm/dl (3.4-5.0) 04/02/22 20:50 Globulin 3.5 gm/dl (2.5-4.0) 04/02/22 20:50 Albumin/Globulin Ratio 1.0 (0.9-2) 04/02/22 20:50 Procalcitonin < 0.05 ng/ml (0-0.5) 04/02/22 20:50 Urine Color Yellow 04/02/22 23:30 Urine Appearance Clear (Clear) 04/02/22 23:30 Urine pH 5.0 (4.5-7.5) 04/02/22 23:30 Ur Specific [place] 1.014 (1.000-1.030) 04/02/22 23:30 Urine Protein 3+ (Negative) H 04/02/22 23:30 Urine Glucose (UA) Negative (Negative) 04/02/22 23:30 Urine Ketones Negative (Negative) 04/02/22 23:30 Urine Blood Negative (Negative) 04/02/22 23:30 Urine Nitrite Negative (Negative) 04/02/22 23:30 Urine Bilirubin Negative (Negative) 04/02/22 23:30 Urine Urobilinogen Negative (Negative) 04/02/22 23:30 Ur Leukocyte Esterase Negative (Negative) 04/02/22 23:30 Urine WBC (Auto) 1-5 /hpf (0-5) 04/02/22 23:30 Urine RBC (Auto) 0-4 /hpf (0-4) 04/02/22 23:30 U Hyaline Cast (Auto) 1-5 /lpf (0-5) 04/02/22 23:30 U Epithel Cells (Auto) 10-20 /lpf (0-5) H 04/02/22 23:30 Urine Bacteria (Auto) Negative (Negative) 04/02/22 23:30 Adenovirus (PCR) DETECTED (NotDetected) A* 04/02/22 22:02 B. pertussis DNA (PCR) Not Detected (NotDetected) 04/02/22 22:02 B.parapertussis DNA PCR Not Detected (NotDetected) 04/02/22 22:02 Lyme Disease IgG Ab Positive (Negative) A 04/02/22 20:50 Lyme Disease IgM Ab Negative (Negative) 04/02/22 20:50 C. pneumoniae DNA (PCR) Not Detected (NotDetected) 04/02/22 22:02 Coronavirus OC43 (PCR) Not Detected (NotDetected) 04/02/22 22:02 Coronavirus HKU1 (PCR) Not Detected (NotDetected) 04/02/22 22:02 Coronavirus 229E (PCR) Not Detected (NotDetected) 04/02/22 22:02 SARS-CoV-2 (PCR) Not Detected (NotDetected) 04/02/22 22:02 Coronavirus NL63 (PCR) Not Detected (NotDetected) 04/02/22 22:02 Human Metapneumovir PCR Not Detected (NotDetected) 04/02/22 22:02 Influenza Type A (PCR) Not Detected (NotDetected) 04/02/22 22:02 Influenza Type B (PCR) Not Detected (NotDetected) 04/02/22 22:02 M. pneumoniae (PCR) Not Detected (NotDetected) 04/02/22 22:02 Parainfluenza 1 (PCR) Not Detected (NotDetected) 04/02/22 22:02 Parainfluenza 2 (PCR) Not Detected (NotDetected) 04/02/22 22:02 Parainfluenza 3 (PCR) Not Detected (NotDetected) 04/02/22 22:02 Parainfluenza 4 (PCR) Not Detected (NotDetected) 04/02/22 22:02 RSV (PCR) Not Detected (NotDetected) 04/02/22 22:02 Entero/Rhino (PCR) Not Detected (NotDetected) 04/02/22 22:02 ECG Additional Comments: atrial flutter Code Status & VTE Plan VTE Prophylaxis Plan VTE Prophylaxis will be ordered: Yes PG Care Time/CCT Total # of Minutes Spent Total Time Spent with Patient: Total time spent is greater than 50% in coordination of care (as documented) at patient's floor/unit and/or counseling patient: Coding Level of Care Code 17833 Initial Inpt Care Lvl 3 Diagnoses COPD (chronic obstructive pulmonary disease) J44.9 Hypercholesterolemia E78.00 PAF (paroxysmal atrial fibrillation) I48.0 Hypertension I10 Diabetes E11.9 Hypomagnesemia E83.42 Fever R50.9 CAD (coronary artery disease) I25.10
[2022-04-03] MEDS ORDERED: ACETAMINOPHEN 325 MG TAB PO PRN (01:22)
[2022-04-03] MEDS ORDERED: GLUCAGON FOR INJ 1 MG VIAL SQ PRN (01:22)
[2022-04-03] MEDS ORDERED: DEXTROSE 50% 50 ML SYRINGE IV PRN (01:22)
[2022-04-03] MEDS ORDERED: MAGNESIUM HYDROXIDE SUSP 30 ML UDC PO PRN (01:22)
[2022-04-03] MEDS ORDERED: CARBOHYDRATES FOR HYPOGLYCEMIA PO PRN (01:22)
[2022-04-03] MEDS ORDERED: GLUCOSE 40% GEL 15 GM TUBE PO PRN (01:22)
[2022-04-03] MEDS ORDERED: GLUCOSE 10 TABS/TUBE PO PRN (01:22)
[2022-04-03] MEDS ORDERED: ONDANSETRON INJ 2 MG/ML 2 ML VIAL IV PRN (01:22)
[2022-04-03] MEDS ORDERED: ALBUTEROL 0.083% NEBU SOLN 3 ML VIAL NEB PRN (01:58)
[2022-04-03] MEDS: MAGNESIUM SULFATE / D5W 1 GM/100 ML BAG IV SCH ×5 (02:16→11:18)
[2022-04-03] MEDS: DOXYCYCLINE HYCLATE 100 MG in DEXTROSE 5% 100 ML IV SCH ×2 (02:16→14:54)
[2022-04-03 07:51] LABS: Estimated Average Glucose 169 mg/dl; Hemoglobin A1C 7.5 % (4.5-5.6)
--- NOTE | 2022-04-03 08:12 | XRay Report ---
XR chest 1V portable HISTORY: Fever. SEPSIS COMPARISON: Chest and abdominal series 07/23/2015. FINDINGS: No pneumothorax. No pleural effusions. The cardiac silhouette is mildly enlarged. There are poststernotomy changes. No evidence for pulmonary edema. There are patchy airspace opacities within the left midlung zone and bilateral lung bases. This likely represents a pneumonia and could be secon gwen to viral process process. IMPRESSION: There are patchy airspace opacities within the left midlung zone and bilateral lung bases. This likel y represents a pneumonia and could be secondary to viral process process. ACT 112: Negative or not required by law. Electronically signed by: Dylan Eduardo M.D. 04/03/2022 8:11 AM
[2022-04-03] MEDS: UMECLIDINIUM/VILANTEROL 62.5/25MCG 7 PUFFS/INHALER INH SCH (08:24)
[2022-04-03] MEDS: TORSEMIDE 10 MG TAB PO SCH (08:25)
[2022-04-03] MEDS: ASPIRIN 81 MG ECTAB PO SCH (08:25)
[2022-04-03] MEDS: FAMOTIDINE 10 MG TABLET PO SCH (08:26)
[2022-04-03] MEDS: ATORVASTATIN 40 MG TAB PO SCH (08:26)
[2022-04-03] MEDS: FINASTERIDE 5 MG TAB PO SCH (08:26)
[2022-04-03] MEDS: METOPROLOL SUCC 50MG EXT REL TAB PO SCH (08:26)
[2022-04-03] MEDS: APIXABAN 5 MG TABLET PO SCH ×2 (08:26→20:06)
[2022-04-03] MEDS: GABAPENTIN 100 MG CAP PO SCH ×3 (08:26→20:07)
--- NOTE | 2022-04-03 08:30 | Electrocardiogram Report ---
Test Reason : Blood Pressure : / mmHG Vent. Rate : 126 BPM Atrial Rate : 126 BPM P-R Int : 176 ms QRS Dur : 104 ms QT Int : 304 ms P-R-T Axes : 102 093 -21 degrees QTc Int : 440 ms Sinus tachycardia Possible Atrial flutter with 2:1 block Possible Old Inferior infarct Abnormal ECG When compared with ECG of 20-AUG-2014 11:03, Atrial flutter now present DC interval has decreased Vent. rate has increased BY 75 BPM Borderline Criteria for Old Inferior infarct now present Reconfirmed by Rocky Del Angel ([id number]) on 04/03/2022 8:36:53 AM Referred By: REFERRED SELF Confirmed By:Rocky Del Angel
[2022-04-03] MEDS: INSULIN GLARGINE SOLOSTAR 100 UNITS/ML 3 ML PEN SC SCH ×2 (08:31→20:18)
--- NOTE | 2022-04-03 08:37 | Electrocardiogram Report ---
Test Reason : Blood Pressure : / mmHG Vent. Rate : 101 BPM Atrial Rate : 250 BPM P-R Int : 000 ms QRS Dur : 090 ms QT Int : 362 ms P-R-T Axes : 000 089 053 degrees QTc Int : 469 ms Atrial flutter with variable A-V block Possible Old Inferior infarct Abnormal ECG When compared with ECG of 02-APR-2022 21:17, HR has decreased by 25 bpm Confirmed by Rocky Del Angel ([id number]) on 04/03/2022 8:37:39 AM Referred By: REFERRED SELF Confirmed By:Rocky Del Angel
[2022-04-03] MEDS ORDERED: METOPROLOL SUCC 50MG EXT REL TAB PO SCH ×2 (09:00)
[2022-04-03] MEDS: INSULIN ASPART PER UNIT SC SCH ×4 (09:48→20:18)
[2022-04-03 13:47] LABS: Troponin I High Sensitivity 23.6 pg/ml (0-20)
[2022-04-03 13:54] LABS: Est GFR (African American) 89.3 ml/min
[2022-04-03 13:55] LABS: BUN Creatinine Ratio 18.8 (10-20); Calcium 8.6 mg/dl (8.5-10.1); Potassium 4.2 mmol/L (3.5-5.1)
[2022-04-03 14:01] LABS: Magnesium 2.2 mg/dl (1.7-2.4)
--- NOTE | 2022-04-03 18:52 | History & Physical Bridge Note ---
Date of Service April 03, 2022 History & Physical Bridge Note I have examined the patient, reviewed the History & Physical and in the interval since the performance of the History & Physical I have noted the following changes of clinical significance: Pt feeling better than on admission, no fevers, no SOB. Still with cough but feels it is improved. Vitals reviewed NAD, AAOx3 irreg irreg, normal rate Lungs with mild crackles at bases, no wheezing Abd +BS soft NT ND Ext-left BKA with prosthesis sleeve on Labs and Rads reviewed 76 yo male here with PNA 2/2 adenovirus, COPD exacerbation possibly, and +Lyme IgM, with fever. Magnesium levels normalized, trop mildly elevated and stable from previous continue supportive care, doxycycline
[2022-04-03] MEDS ORDERED: INSULIN GLARGINE SOLOSTAR 100 UNITS/ML 3 ML PEN SC SCH (21:00)
[2022-04-04] MEDS: DOXYCYCLINE HYCLATE 100 MG in DEXTROSE 5% 100 ML IV SCH ×2 (02:01→12:29)
[2022-04-04] MEDS: GABAPENTIN 100 MG CAP PO SCH ×3 (08:10→21:47)
[2022-04-04] MEDS: ATORVASTATIN 40 MG TAB PO SCH (08:10)
[2022-04-04] MEDS: APIXABAN 5 MG TABLET PO SCH ×2 (08:10→21:47)
[2022-04-04] MEDS: FINASTERIDE 5 MG TAB PO SCH (08:11)
[2022-04-04] MEDS: TORSEMIDE 10 MG TAB PO SCH (08:11)
[2022-04-04] MEDS: FAMOTIDINE 10 MG TABLET PO SCH (08:11)
[2022-04-04] MEDS: ASPIRIN 81 MG ECTAB PO SCH (08:11)
[2022-04-04] MEDS: METOPROLOL SUCC 50MG EXT REL TAB PO SCH (08:11)
[2022-04-04] MEDS: UMECLIDINIUM/VILANTEROL 62.5/25MCG 7 PUFFS/INHALER INH SCH (08:12)
[2022-04-04] MEDS: INSULIN ASPART PER UNIT SC SCH ×4 (08:18→21:59)
[2022-04-04] MEDS: INSULIN GLARGINE SOLOSTAR 100 UNITS/ML 3 ML PEN SC SCH ×2 (08:19→21:59)
[2022-04-04 08:38] LABS: Basophils # (auto) 0.04 K/uL (0-0.2); Basophils % (auto) 0.6 %; Eosinophils # (auto) 0.14 K/uL (0-0.5); Eosinophils % (auto) 2.1 %; Hematocrit (blood only) 36.2 % (42-52); Hemoglobin 11.7 g/dL (14.0-18.0); Immature Granulocytes # (auto) 0.01 K/uL (0.00-0.02); Immature Granulocytes % (auto) 0.2 %; Lymphocytes # (auto) 1.85 K/uL (1.2-3.4); Lymphocytes % (auto) 28.3 %; Mean Corpuscular Hgb Conc 32.3 g/dL (32-36); Mean Corpuscular Volume 89.8 fL (80-100); Mean Platelet Volume 9.2 fL (7.4-10.4); Monocytes # (auto) 0.74 K/uL (0.11-0.59); Monocytes % (auto) 11.3 %; Neutrophils # (auto) 3.75 K/uL (1.4-6.5); Neutrophils % (auto) 57.5 %; Platelet Count 183 K/uL (130-400); RDW Coefficient of Variation 17.1 % (11.5-14.5); RDW Standard Deviation 56.5 fL (36.4-46.3); Red Blood Count 4.03 M/uL (4.7-6.1); White Blood Count 6.53 K/uL (4.8-10.8)
[2022-04-04 09:04] LABS: BUN Creatinine Ratio 25.4 (10-20); Creatinine Clr Calc Pharmacy 57.9 ml/min; Est GFR (African American) 64.2 ml/min; Est GFR (Non-African American) 55.4 ml/min
--- NOTE | 2022-04-04 16:13 | Hospitalist Progress Note ---
Date of Service April 04, 2022 Assessment & Plan (1) Pneumonia: Plan: 76yo male with history of HTN, DM, HLP, COPD and Atrial flutter presenting with fever. Patient recently hospitalized at [facility] with sepsis and PNA. Patient with fever prior to admission, persistent cough productive for green sputum. Patient was treated with Zosyn and Augmentin for PNA after dc from [place]. Now with Adenovirus + as well as lyme IgG -with PNA 2/2 adenovirus, COPD exacerbation possibly, and +Lyme IgM, with fever. Magnesium levels normalized, trop mildly elevated and stable from previous Improving, less SOB, still with fever -continue doxycycline in case of Lyme but also superimposed bacterial PNA -follow CXR to resolution as outpt -supplemental O2 as needed-none needed now (2) Fever: Plan: persists, 2/2 adenovirus -Follow cultures-NGTD -Tylenol as needed -continue Empiric doxycycline 100mg po BID -Supportive care -follow Lyme WB (3) COPD (chronic obstructive pulmonary disease): Plan: Patient with diffuse wheezing, cough, persists but improving -Continue Anoro -Albuterol as needed -Supplemental O2 as needed (4) PAF (paroxysmal atrial fibrillation): Plan: rates controlled -Continue metoprolol XL 50mg po daily -Continue Apixaban 5mg po BID (5) Diabetes: Plan: Hypoglycemic on arrival. Patient is on Tresiba 66u daily but recently had gone back up to 78 units. DOesn't typically cut his Novolog down much when he was feeling ill and not eaiting as much Now normalized -Lantus 33u BID -ISS -Monitor blood sugars -Continue Gabapentin for neuropathy (6) CAD (coronary artery disease): Plan: Patient with CAD s/p CABG, s/p stent placement -Continue ASA 81mg po daily -Continue Atorvastatin 40mg po daily -Continue Metoprolol XL 50mg po daily -Patient was previously on Lisinopril which was discontinued due to NINA and low blood pressure (7) Hypercholesterolemia: Plan: Chronic -Continue Atorvastatin (8) Hypertension: Plan: Blood pressure WNL -Continue metoprolol -Was previously on Lisinopril and Amlodipine which have been discontinued (9) Hypomagnesemia: Plan: replaced on admission and now normal Plan: DVT Ppx - On Apixaban Code - Full per discussion with patient Dispo - continued stay medical with telemetry, but possible dc to home tomorrow, CLeared by PT/OT Admission and Anticipated Discharge Date Admission Date: April 03, 2022 Subjective Feeling better, taking a nap. Had another fever overnight. has had diarrhea every 2 hours today. No abd pains, is eating and drinking Still with cough and feels it is productive. Tele with Aflutter, rates in 80-100s Review of Systems Review of Systems: All systems reviewed & are unremarkable except as noted in HPI & below Physical Exam Constitutional: WD/WN, vitals as above Eyes: + anicteric sclerae Neck: trachea midline, no thyromegaly Respiratory: normal respiratory effort and + cough Auscultation: + rhonchi and + wheezes Cardiovascular: Rate/Rhythm: regular rate and + irregularly irregular Heart Sounds: no murmur Extremities: no edema Chest (Breasts): Chest: normal inspection of chest Gastrointestinal (Abdomen): normal bowel sounds, soft, nontender, no hepatosplenomegaly Musculoskeletal: Extremities: + extremities abnormal to inspection (LLE BKA), no cyanosis and no clubbing Skin: no rashes, warm and dry Neurologic: moves all extremities and awake; no focal motor deficits Psychiatric: A+Ox3, euthymic affect Lymphatic: no lymphedema Results & Data Results & Data ([facility]) Vital Signs (Past 12 Hours) Vital Signs Temp Pulse Pulse Resp BP Pulse Ox 04/04/22 15:22 37.3 C 92 H 20 119/61 90 04/04/22 14:57 90 04/04/22 10:52 36.9 C 103 H 20 130/73 90 04/04/22 07:34 37.7 C H 90 18 120/52 L 94 Laboratory Results 04/04/22 04/04/22 04/04/22 Range/Units 11:20 08:03 08:03 WBC 6.53 (4.8-10.8) K/uL RBC 4.03 L (4.7-6.1) M/uL Hgb 11.7 L (14.0-18.0) g/dL Hct 36.2 L (42-52) % MCV 89.8 (80-100) fL MCH 29.0 (25-34) pg MCHC 32.3 (32-36) g/dL RDW Std Deviation 56.5 H (36.4-46.3) fL RDW Coeff of Freda 17.1 H (11.5-14.5) % Plt Count 183 (130-400) K/uL MPV 9.2 (7.4-10.4) fL Immature Gran % (Auto) 0.2 % Neut % (Auto) 57.5 % Lymph % (Auto) 28.3 % [place] % (Auto) 11.3 % Eos % (Auto) 2.1 % Baso % (Auto) 0.6 % Neut # (Auto) 3.75 (1.4-6.5) K/uL Lymph # (Auto) 1.85 (1.2-3.4) K/uL [place] # (Auto) 0.74 H (0.11-0.59) K/uL Eos # (Auto) 0.14 (0-0.5) K/uL Baso # (Auto) 0.04 (0-0.2) K/uL Immature Gran # (Auto) 0.01 (0.00-0.02) K/uL Sodium 136 (136-145) mmol/L Potassium 4.0 (3.5-5.1) mmol/L Chloride 101 (98-107) mmol/L Carbon Dioxide 28 (21-32) mmol/L Anion Gap 7 (3-11) BUN 32 H (6-23) mg/dl Creatinine 1.26 D (0.6-1.4) mg/dl Est Cr Clr Drug Dosing 57.9 ml/min Est GFR ( Amer) 64.2 ml/min Est GFR (Non-Af Amer) 55.4 ml/min BUN/Creatinine Ratio 25.4 H (10-20) Glucose 69 L (70-99(Fasting)) mg/dl POC Glucose 149 H (70-99) mg/dl Calcium 9.0 (8.5-10.1) mg/dl Phosphorus 3.0 (2.5-4.9) mg/dl 04/04/22 04/04/22 04/04/22 Range/Units 07:30 03:52 00:32 WBC (4.8-10.8) K/uL RBC (4.7-6.1) M/uL Hgb (14.0-18.0) g/dL Hct (42-52) % MCV (80-100) fL MCH (25-34) pg MCHC (32-36) g/dL RDW Std Deviation (36.4-46.3) fL RDW Coeff of Freda (11.5-14.5) % Plt Count (130-400) K/uL MPV (7.4-10.4) fL Immature Gran % (Auto) % Neut % (Auto) % Lymph % (Auto) % [place] % (Auto) % Eos % (Auto) % Baso % (Auto) % Neut # (Auto) (1.4-6.5) K/uL Lymph # (Auto) (1.2-3.4) K/uL [place] # (Auto) (0.11-0.59) K/uL Eos # (Auto) (0-0.5) K/uL Baso # (Auto) (0-0.2) K/uL Immature Gran # (Auto) (0.00-0.02) K/uL Sodium (136-145) mmol/L Potassium (3.5-5.1) mmol/L Chloride (98-107) mmol/L Carbon Dioxide (21-32) mmol/L Anion Gap (3-11) BUN (6-23) mg/dl Creatinine (0.6-1.4) mg/dl Est Cr Clr Drug Dosing ml/min Est GFR ( Amer) ml/min Est GFR (Non-Af Amer) ml/min BUN/Creatinine Ratio (10-20) Glucose (70-99(Fasting)) mg/dl POC Glucose 87 111 H 129 H (70-99) mg/dl Calcium (8.5-10.1) mg/dl Phosphorus (2.5-4.9) mg/dl 04/03/22 04/03/22 Range/Units 19:59 16:53 WBC (4.8-10.8) K/uL RBC (4.7-6.1) M/uL Hgb (14.0-18.0) g/dL Hct (42-52) % MCV (80-100) fL MCH (25-34) pg MCHC (32-36) g/dL RDW Std Deviation (36.4-46.3) fL RDW Coeff of Freda (11.5-14.5) % Plt Count (130-400) K/uL MPV (7.4-10.4) fL Immature Gran % (Auto) % Neut % (Auto) % Lymph % (Auto) % [place] % (Auto) % Eos % (Auto) % Baso % (Auto) % Neut # (Auto) (1.4-6.5) K/uL Lymph # (Auto) (1.2-3.4) K/uL [place] # (Auto) (0.11-0.59) K/uL Eos # (Auto) (0-0.5) K/uL Baso # (Auto) (0-0.2) K/uL Immature Gran # (Auto) (0.00-0.02) K/uL Sodium (136-145) mmol/L Potassium (3.5-5.1) mmol/L Chloride (98-107) mmol/L Carbon Dioxide (21-32) mmol/L Anion Gap (3-11) BUN (6-23) mg/dl Creatinine (0.6-1.4) mg/dl Est Cr Clr Drug Dosing ml/min Est GFR ( Amer) ml/min Est GFR (Non-Af Amer) ml/min BUN/Creatinine Ratio (10-20) Glucose (70-99(Fasting)) mg/dl POC Glucose 161 H 109 H (70-99) mg/dl Calcium (8.5-10.1) mg/dl Phosphorus (2.5-4.9) mg/dl PG Care Time/CCT Total # of Minutes Spent Total Time Spent with Patient: Total time spent is greater than 50% in coordination of care (as documented) at patient's floor/unit and/or counseling patient: Coding Level of Care Code 23104 Subseq Hosp Care Lvl 3 Diagnoses Fever R50.9 COPD (chronic obstructive pulmonary disease) J44.9 PAF (paroxysmal atrial fibrillation) I48.0 Diabetes E11.9 CAD (coronary artery disease) I25.10 Hypercholesterolemia E78.00 Hypertension I10 Hypomagnesemia E83.42 Pneumonia J18.9
[2022-04-04 19:30] LABS: Adenovirus F 40/41 PCR Not Detected (NotDetected); Astrovirus PCR Not Detected (NotDetected); Campylobacter PCR Not Detected (NotDetected); Clostridium diff Toxin A/B PCR Not Detected (NotDetected); Cryptosporidium PCR Not Detected (NotDetected); Cyclospora cayetanensis PCR Not Detected (NotDetected); Entamoeba histolytica PCR Not Detected (NotDetected); Enteroaggregative E.coli(EAEC) Not Detected (NotDetected); Enteropathogenic E.coli (EPEC) Not Detected (NotDetected); Enterotoxigenic E.coli (ETEC) Not Detected (NotDetected); Giardia lamblia PCR Not Detected (NotDetected); Norovirus GI/GII PCR Not Detected (NotDetected); Plesiomonas shigelloides PCR Not Detected (NotDetected); Rotavirus A PCR Not Detected (NotDetected); Salmonella PCR Not Detected (NotDetected); Sapovirus PCR Not Detected (NotDetected); Shiga-like Toxin E.coli (STEC) Not Detected (NotDetected); Shigella/Enteroinvasive E.coli Not Detected (NotDetected); Vibrio cholerae PCR Not Detected (NotDetected); Vibrio species PCR Not Detected (NotDetected); Yersinia enterocolitica PCR Not Detected (NotDetected)
[2022-04-05] MEDS: DOXYCYCLINE HYCLATE 100 MG in DEXTROSE 5% 100 ML IV SCH ×2 (01:38→16:09)
[2022-04-05] MEDS: GABAPENTIN 100 MG CAP PO SCH ×2 (07:42→13:42)
[2022-04-05] MEDS: TORSEMIDE 10 MG TAB PO SCH (07:42)
[2022-04-05] MEDS: UMECLIDINIUM/VILANTEROL 62.5/25MCG 7 PUFFS/INHALER INH SCH (07:42)
[2022-04-05] MEDS: METOPROLOL SUCC 50MG EXT REL TAB PO SCH (07:42)
[2022-04-05] MEDS: FAMOTIDINE 10 MG TABLET PO SCH (07:43)
[2022-04-05] MEDS: ASPIRIN 81 MG ECTAB PO SCH (07:43)
[2022-04-05] MEDS: APIXABAN 5 MG TABLET PO SCH (07:43)
[2022-04-05] MEDS: ATORVASTATIN 40 MG TAB PO SCH (07:43)
[2022-04-05] MEDS: FINASTERIDE 5 MG TAB PO SCH (07:43)
[2022-04-05 08:08] LABS: Basophils # (auto) 0.03 K/uL (0-0.2); Basophils % (auto) 0.5 %; Eosinophils # (auto) 0.28 K/uL (0-0.5); Eosinophils % (auto) 4.7 %; Hematocrit (blood only) 35.7 % (42-52); Hemoglobin 11.9 g/dL (14.0-18.0); Immature Granulocytes # (auto) 0.01 K/uL (0.00-0.02); Immature Granulocytes % (auto) 0.2 %; Lymphocytes # (auto) 2.09 K/uL (1.2-3.4); Lymphocytes % (auto) 34.8 %; Mean Corpuscular Hemoglobin 30.1 pg (25-34); Mean Corpuscular Hgb Conc 33.3 g/dL (32-36); Mean Corpuscular Volume 90.4 fL (80-100); Mean Platelet Volume 9.3 fL (7.4-10.4); Monocytes # (auto) 0.67 K/uL (0.11-0.59); Monocytes % (auto) 11.2 %; Neutrophils # (auto) 2.92 K/uL (1.4-6.5); Neutrophils % (auto) 48.6 %; Platelet Count 208 K/uL (130-400); RDW Coefficient of Variation 16.9 % (11.5-14.5); RDW Standard Deviation 55.5 fL (36.4-46.3); Red Blood Count 3.95 M/uL (4.7-6.1)
[2022-04-05 08:44] LABS: BUN Creatinine Ratio 30.8 (10-20); Calcium 9.4 mg/dl (8.5-10.1); Creatinine Clr Calc Pharmacy 60.8 ml/min; Est GFR (African American) 68.1 ml/min; Est GFR (Non-African American) 58.8 ml/min; Magnesium 1.6 mg/dl (1.7-2.4); Potassium 3.9 mmol/L (3.5-5.1)
[2022-04-05] MEDS: INSULIN ASPART PER UNIT SC SCH ×2 (08:46→12:38)
[2022-04-05] MEDS ORDERED: INSULIN GLARGINE SOLOSTAR 100 UNITS/ML 3 ML PEN SC SCH (09:00)
[2022-04-05] MEDS: MAGNESIUM SULFATE / D5W 1 GM/100 ML BAG IV SCH ×2 (09:50→12:15)
[2022-04-05] MEDS ORDERED: SACCHAROMYCES BOULARDII 250 MG CAP PO SCH (12:00)
--- NOTE | 2022-04-05 13:01 | Discharge Summary ---
Date of Service April 05, 2022 Admission HPI Per Admitting Provider Cameron Ernandez is a 76yo male with history of atrial flutter, HTN, DM, FAIZA, HLP and COPD presenting with fever, tachycardia, weakness and cough. Patient was recently admitted to [facility] from 03/19/22 - 03/23/22 after presenting with lightheadedness, blurry vision and dizziness. He was found to be hypotensive and in atrial flutter with a slow ventricular rate in the 30's. He was started on dopamine infusion and admitted to the MICU. Labs at that time significant for BNP of 3018, Cr of 6.9 and Lactate of 2.1 He was managed with IV Zosyn for suspected PNA. He was discharged home to complete a course of Augmentin. Torsemide, Cardizem and Lisinopril held on discharge home. Patient was discharged home on 03/23/22. He reports feeling weak and fatigued since arriving home, unsteadiness on his feet and difficulty with ambulation. He meier an ongoing cough productive for green sputum as well as fever for several days. His neighbor measured his temperature to be 101 today. He has had some d iarrhea. Otherwise denies chest pain, palpitations, SOB, abdominal pain, nausea, vomiting, constipation. He had low blood sugar today on arrival at 43 - reports feeling sweaty and shaky during this episode. IN the ER patient febrile, tachycardic, BP stable. No respiratory distress - saturating 92% on room air. 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 Patient recently hospitalized at [facility] with sepsis and PNA. Patient with fever prior to admission, persistent cough productive for green sputum. Patient was treated with Zosyn and Augmentin for PNA after dc from [place]. Now with Adenovirus + as well as lyme IgG -with PNA 2/2 adenovirus, COPD exacerbation possibly, and +Lyme IgM, with fever. Magnesium levels normalized, trop mildly elevated and stable from previous Much improved, no further SOB, and fever now resolved -continue doxycycline in case of Lyme but also superimposed bacterial PNA -follow CXR to resolution as outpt -supplemental O2 as needed-none needed now (2) Fever: 2/2 adenovirus, now resolved -Follow cultures-NGTD -Tylenol as needed -continue Empiric doxycycline 100mg po BID -Supportive care -follow Lyme WB as an outpatient (3) COPD (chronic obstructive pulmonary disease): Patient with diffuse wheezing, cough now much improved -Continue Anoro -Albuterol as needed -Supplemental O2 as needed (4) PAF (paroxysmal atrial fibrillation): rates controlled -Continue metoprolol XL 50mg po daily -Continue Apixaban 5mg po BID (5) Diabetes: Hypoglycemic on arrival. Patient is on Tresiba 66u daily but recently had gone back up to 78 units. DOesn't typically cut his Novolog down much when he was feeling ill and not eaiting as much Now normalized -continue Lantus 50u hs on dc which is a large reduction -reduce Novoloog to 5 units with meals -Continue Gabapentin for neuropathy (6) CAD (coronary artery disease): Patient with CAD s/p CABG, s/p stent placement -Continue ASA 81mg po daily -Continue Atorvastatin 40mg po daily -Continue Metoprolol XL 50mg po daily -Patient was previously on Lisinopril which was discontinued due to NINA and low blood pressure (7) Hypercholesterolemia: Chronic -Continue Atorvastatin (8) Hypertension: Blood pressure WNL -Continue metoprolol -Was previously on Lisinopril and Amlodipine which have been discontinued (9) Hypomagnesemia: replaced on admission and now normal DVT Ppx - On Apixaban Code - Full per discussion with patient Dispo - dc to home today, CLeared by PT/OT Total Time Total Time Spent Total Time Spent (In Minutes): 40 min Discharge Plan Discharge Items Patient Disposition: Home - Self-Care Reason For Visit: COUGH, FEVER Discharge Diagnosis: Fever secondary to Adenovirus, Pneumonia, hypoglycemia, Possible Lyme disease Condition on Discharge: Fair Activity: As commented below Lifting: Gradually increase as tolerated Bathing: No limitations Exercise/Sports: Gradually increase as tolerated Non-emergency contact: Primary Care Provider Call non-emergency contact if: you have any medication questions and your symptoms worsen Follow-up/Referrals: Luan Pelaez MD [Primary Care Provider] - 04/13/22 3:00 pm () Diet: Carb Consistent or DM2 and Heart Healthy Addtl Attending Provider Instructions: You were admitted for fever and a cough and found to have a Pneumonia caused by the Adenovirus. You improved with time and your fevers resolved. Please continue the doxycycline for bronchitis as well as possible Lyme disease for 12 more days. You can use the albuterol inhaler 4 times a day as needed for cough. Continue the once daily Anoro inhaler. Your blood sugars were too low here and your insulin doses were reduced by quite a bit. Please follow the instructions on the medication list. For tonight, do NOT take your Tresiba because you already received Lantus this morning. Please resume the Tresiba at 50 units at bedtime starting on 04/06/22. Your Novolog dose was cut way down to 5 units with meals but you may need to increase that back if your blood sugars are becoming too high again. Your Lyme disease test came back positive and you should continue to take the doxycycline for this for 12 more days. Follow up with your PCP within 1 week. Pending Studies at Discharge: Yes (Lyme Western Blot, Final Blood Cultures-no growth to date) Stand-Alone Forms: [facility] Medications and DC Order Prescriptions: New Anoro Ellipta 62.5-25 mcg/actuation Blister With Device 1 inh inhalation DAILY Qty: 60 RF: 0 Saccharomyces boulardii [Florastor] 250 mg Capsule 250 mg PO DAILY Qty: 30 RF: 0 albuterol sulfate 90 mcg/actuation HFA aerosol inhaler 2 inh inhalation Q6H PRN (Reason: shortness of breath or wheezing) Qty: 8.5 RF: 0 Continued Eliquis 5 mg tablet 5 mg PO BID RF: 0 atorvastatin 40 mg tablet 40 mg PO DAILY Qty: 90 RF: 3 folic acid 800 mcg tablet 0.8 mg PO DAILY RF: 0 ascorbic acid (vitamin C) 1,000 mg tablet 1 gm PO DAILY RF: 0 aspirin 81 mg tablet,delayed release (DR/EC) 81 mg PO DAILY RF: 0 (DME) insulin admin supplies insulin pen See Dose Instructions .ROUTE .MEDSUPPLY Qty: 1 RF: 3 (DME) lancets [OneTouch Delica Lancets] 30 gauge misc See Dose Instructions .ROUTE .MEDSUPPLY Qty: 100 RF: 5 Ozempic 1 mg/dose (2 mg/1.5 mL) pen injector 1 mg SQ WK RF: 0 (DME) FreeStyle [place] 14 Day [place] Misc See Rx Instructions .ROUTE .MEDSUPPLY Qty: 1 RF: 0 (DME) FreeStyle [place] 14 Day Sensor Kit See Rx Instructions .ROUTE .MEDSUPPLY Qty: 1 RF: 0 (DME) Left prosthetic limb K3 See Rx Instructions .Route .MEDSUPPLY Qty: 1 RF: 0 finasteride 5 mg tablet 5 mg PO DAILY RF: 0 omeprazole 20 mg capsule,delayed release(DR/EC) 20 mg PO DAILY RF: 0 gabapentin 100 mg capsule 100 mg PO TID RF: 0 metformin 500 mg Tablet Extended Release 24 Hr 1,000 mg PO DAILYBD RF: 0 Changed metoprolol succinate 100 mg tablet extended release 24 hr 100 mg PO QAM Qty: 0 RF: 0 Discontinued amoxicillin-pot clavulanate 875-125 mg tablet 1 tab PO BID RF: 0 insulin aspart U-100 100 unit/mL Cartridge 18 unit SUBCUT TIDM RF: 0 Tresiba FlexTouch U-200 200 unit/mL (3 mL) Insulin Pen 78 unit SUBCUT HS RF: 0 No Action metoprolol succinate 50 mg tablet extended release 24 hr 50 mg PO .every evening Qty: 90 RF: 3 Tresiba FlexTouch U-200 200 unit/mL (3 mL) insulin pen 78 unit SUBCUT HS Qty: 9 RF: 3 torsemide 20 mg tablet 20 mg PO DAILY Qty: 30 RF: 5 insulin aspart U-100 100 unit/mL cartridge 16 unit SUBCUT .with meals Qty: 3 RF: 5 insulin aspart U-100 100 unit/mL (3 mL) insulin pen 16 unit subcut .w meals Max 48u/24h Qty: 9 RF: 4 Discharge Orders: Discharge Order (Routine); Ordered 04/05/22 Ordered By: Fiorella Briggs/Other Patient Handouts: Managing Type 2 Diabetes Admission Data Admit Date/Time: 04/03/22 00:52 Attending Provider: Fiorella Dominguez Admit Provider: Mary Jorgensen Primary Care Provider: Luan Pelaez Other Providers: Mary Jorgensen Other Interventions: Discharge Summary Assessment (RN) Last Done: 04/05/22 16:30 Coding Level of Care Code D/C DAY MANAGEMENT >30 MINS Diagnoses Pneumonia J18.9 Fever R50.9 COPD (chronic obstructive pulmonary disease) J44.9 PAF (paroxysmal atrial fibrillation) I48.0 Diabetes E11.9 CAD (coronary artery disease) I25.10 Hypercholesterolemia E78.00 Hypertension I10 Hypomagnesemia E83.42
[2022-04-05 16:06] LABS: 18KDIGG Band REACTIVE; 23KDIGG Band NON-REACTIVE; 23KDIGM Band NON-REACTIVE; 28KDIGG Band REACTIVE; 30KDIGG Band NON-REACTIVE; 39KDIGG Band REACTIVE; 39KDIGM Band NON-REACTIVE; 41KDIGG Band REACTIVE; 41KDIGM Band NON-REACTIVE; 45KDIGG Band REACTIVE; 58KDIGG Band REACTIVE; 66KDIGG Band REACTIVE; 93KDIGG Band REACTIVE; Lyme Antibodies, WB IgG POSITIVE (NEGATIVE); Lyme Antibodies, WB IgM NEGATIVE (NEGATIVE)
--- NOTE | 2022-04-16 13:30 | Coding Query ---
A supporting diagnosis is required for the test/procedure performed on this patient in order for us to be reimbursed by the patient's insurance. Please provide a supporting diagnosis for the following test/procedure listed below next to the test name along with your signature. *If there is no additional diagnosis for this patient that would support the following test/procedure please document that below next to the test/procedure. Test(s)/Procedure(s) that require a supporting diagnosis: * 21287 GASTROINTESTINAL PATH DIAGNOSIS: Diarrhea DATE OF SERVICE: 04/05/22 Provider Signature: __Fiorella Dominguez M.D. Date: __04/16/22 Thank you Oscar Amor [facility] Information Management Once completed, please kindly fax back to [phone] For questions please call [phone] [facility]
== END 2022-04-05 17:59 | disposition home or self-care (01) ==
LOC: ED 21:12 → SUATTDRO 04-03 00:52 → INTOOBSV 04-03 00:52 → EDINP 04-03 00:52 → 2W 04-03 01:40
DX: R19.7 Diarrhea, unspecified; J44.9 Chronic obstructive pulmonary disease, unspecified; I48.0 Paroxysmal atrial fibrillation; Z79.82 Long term (current) use of aspirin; Z95.5 Presence of coronary angioplasty implant and graft; Z79.899 Other long term (current) drug therapy; Z79.01 Long term (current) use of anticoagulants; J18.9 Pneumonia, unspecified organism; I25.10 Atherosclerotic heart disease of native coronary artery without angina pectoris; E83.42 Hypomagnesemia; E10.9 Type 1 diabetes mellitus without complications; I10 Essential (primary) hypertension; E78.00 Pure hypercholesterolemia, unspecified

== ENCOUNTER 2023-06-21 16:47 | Inpatient (IN) ==
--- NOTE | 2023-06-21 17:23 | Emergency Department Note ---
Impression & Plan Hypoxia, CHF (congestive heart failure), SOB (shortness of breath), Carbon dioxide retention ED Provider Note NAME: CANDICE SEWELL AGE: 77 SEX: M : 1945 ARRIVES VIA: Ambulance INFORMANT: [Patient] ED PROVIDER(S): [Dago Pierce MD] CHIEF COMPLAINT: Shortness of breath HISTORY OF PRESENT ILLNESS: The patient is a 77-year-old male who states that he has had increasing shortnes s of breath for a few weeks. He has not had fever, no weight gain. He is coughing more. There has been no chest pain. The patient was found to be hypoxic by nursing staff, he does not typically wear oxygen. The patient has a history of COPD but does not have a nebulizer or inhaler. He has had a PE as well as heart failure. Of note, the patient has a history of an aortic valve replacement, coronary stent placement, CABG. PMHx/PSHx: See Below SOCIAL HISTORY: See Below. PHYSICAL EXAM: GENERAL: Patient is in no acute distress. HEENT: No acute trauma, normocephalic atraumatic, mucous membranes moist, no nasal congestion. NECK: No stridor, no adenopathy, no meningismus, trachea is midline. LUNGS: Crackles bilaterally, diminished breath sounds bilaterally. No wheezing. HEART: Subtle systolic murmur, irregular rhythm, normal rate. ABDOMEN: Soft, nontender, bowel sounds positive, no peritonitis. EXTREMITIES: No cyanosis or edema. 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 There is an abrasion to the right distal anterior leg with some subtle surrounding erythema and warmth. NEUROLOGIC: Oriented x 3, no acute motor or sensory deficits, no focal weakness. SKIN: No rash, no jaundice, no diaphoresis. DIFFERENTIAL DIAGNOSIS: CHF, pneumonia, bronchitis, exacerbation of COPD, anemia, ND, electrolyte imbalance, viral illness, among others. EMERGENCY DEPARTMENT COURSE/PROCEDURES: Prior/Outside records reviewed: Previous cardiology note. ECG per my interpretation: Indication was shortness of breath. The ECG shows atrial flutter with a rate of 76. There is some nonspecific ST change. There is no ST elevation, no PVCs but the QTc is 459. Continuous Cardiac Monitoring per my interpretation: An order was placed for continuous cardiac monitoring. The monitor shows a rate of 80 with atrial flutter. Critical Care Note: I have personally spent 43 minutes of critical care time in the direct management of this patient. This includes bedside care, interpretation of diagnostic studies, and testing, discussion with consultants, patient, and family members, and other required patient management activities. This 43 minutes is in excess of all separately billable procedures. MEDICAL DECISION MAKING: There is no leukocytosis or concerning anemia. There is a normal platelet count. INR was 1.2, slightly elevated. ABG did not show acidosis. There was CO2 retention noted. Renal panel testing does show a high CO2. There was a normal creatinine. BUN was elevated at 50. Lactic acid level was not elevated making severe sepsis less likely. There was a subtle bilirubin elevation, the remaining liver enzymes were unremarkable. BNP was elevated consistent with fluid overload. Chest film per my review does show some mild CHF, no pneumonia or pneumothorax. ECG shows atrial flutter, no acute ischemia. Cardiac enzyme testing x1 is not consistent with acute cardiac injury. Urinalysis does not show infection. Respiratory bio fire was completely negative. On exam, the patient was hypoxic without O2 supplementation. He had crackles on his lung examination. The patient appears to be fluid overloaded. This has led to some CO2 retention and shortness of breath. The patient was eventually placed on BiPAP to help with his breathing and CO2 retention. He was given 40 mg of IV Lasix. The patient is in need of a hospital stay. I spoke with the patient at length, I did speak with case management, the on-call hospitalist was consulted. DISPOSITION: Patient's presentation and findings warrant a hospital stay. Past Med/Surg History Medical History Acute renal failure Aortic stenosis Atrial flutter Benign essential hypertension Chronic heart failure with preserved ejection fraction COPD (chronic obstructive pulmonary disease) Diabetes mellitus type 1 History of shingles HX: intermediate anticoagulant use Hypercholesterolemia Hypertension Blood pressure is not adequately controlled with systolic blood pressures consistently over 150. Patient will increase the amlodipine to 5 milligrams twice a day. FAIZA (obstructive sleep apnea) refuses CPAP PAF (paroxysmal atrial fibrillation) WALE/CV 2019 Dr Valdivia PE (pulmonary embolism) Surgical History Amputation below knee History of aortic valve replacement History of cataract surgery History of cholecystectomy History of colonoscopy History of heart artery stent S/P CABG (coronary artery bypass graft) Family History Brother Liver cancer Coronary heart disease Diabetes Father Cancer Diabetes Coronary heart disease Mother Diabetes Brother Coronary heart disease Myocardial infarction Denies family history of Ovarian cancer Prostate cancer Breast cancer Colorectal cancer Social History Smoking Status: Former smoker Tobacco Type: Cigarettes Age Started Using Tobacco: 17; Age Quit Using Tobacco: 59; packs per day: 2; Second Hand Exposure: Yes; Do You Dip or Chew Tobacco: No; Hx Alcohol Use: No Hx Substance Use: No Preferred Language: Nigerian Communication Ability: Effective Visual Impairment: Partially Limited Hearing Ability: Use of Hearing Aid Conservation Policy Analyst Required: Yes Beliefs That Will Affect Care: None marital status: Single Current Living Situation: Alone current occupational status: retired How many Children do You have: 0 Feels Safe at Home: Yes Childhood Exposure to Second-Hand Smoke: Yes Diet: regular caffeine: Yes (coffee) during the past year weight has: remained stable Dental Care, Regularly: No Physical Activity Frequency: Does not Exercise Seatbelt Use: always Sunscreen Use: No Do you think of yourself as: straight/heterosexual Gender Identity: Male Assistive Devices: Cane, Glasses and Hearing Aid - Bilateral Allergies Allergies Allergy/AdvReac Type Severity Reaction Status Date / Time No Known Drug Allergies Allergy 0 Verified 06/21/23 19:39 Home Meds Home Medications Medication Instructions Recorded Confirmed ascorbic acid (vitamin C) 1,000 mg 1 gm PO DAILY 04/13/19 06/21/23 tablet folic acid 800 mcg tablet 0.8 mg PO DAILY 04/13/19 06/21/23 aspirin 81 mg tablet,delayed 81 mg PO DAILY 04/17/19 06/21/23 release semaglutide 1 mg/dose (2 mg/1.5 1 mg subcut WK 10/05/20 06/21/23 mL) subcutaneous pen injector (Ozempic) metformin 500 mg tablet,extended 1,000 mg PO DAILY 06/05/22 06/21/23 release 24 hr insulin aspart U-100 100 unit/mL 18 unit subcut TID 10/23/22 06/21/23 subcutaneous solution (Novolog U-100 Insulin aspart) Saccharomyces boulardii 250 mg 250 mg PO QAM 06/21/23 06/21/23 capsule (Florastor) diphenoxylate-atropine 2.5 1 tab PO BID PRN Diarrhea 06/21/23 06/21/23 mg-0.025 mg tablet (Lomotil) metoprolol succinate 100 mg 100 mg PO DAILY 06/21/23 06/21/23 tablet,extended release 24 hr silver sulfadiazine 1 % topical 1 applic topical DAILY 06/21/23 06/21/23 cream (Silvadene) torsemide 20 mg tablet 20 mg PO DAILY 06/21/23 06/21/23 umeclidinium 62.5 mcg-vilanterol 1 inh inhalation DAILY 06/21/23 06/21/23 25 mcg/actuation powdr for inhalation (Anoro Ellipta) Previous Rx's Medication Instructions Recorded insulin admin supplies #1 ea 04/17/19 flash glucose scanning reader #1 ea 11/18/20 (FreeStyle [place] 14 Day [place]) Left prosthetic limb K3 #1 ea 03/08/21 gabapentin 100 mg capsule 100 mg PO TID #300 caps 05/09/22 finasteride 5 mg tablet 5 mg PO DAILY #90 tabs 08/24/22 flash glucose sensor (DroneDeployyle #6 ea 12/27/22 [place]esean 14 Day Sensor kit) amlodipine 2.5 mg tablet 2.5 mg PO DAILY #90 tabs 01/02/23 atorvastatin 40 mg tablet 40 mg PO DAILY #90 tabs 02/25/23 apixaban 5 mg tablet (Eliquis) 5 mg PO BID #180 tabs 03/13/23 omeprazole 20 mg capsule,delayed 20 mg PO DAILY #90 caps 03/13/23 release lisinopril 5 mg tablet 5 mg PO DAILY #90 tabs 04/09/23 insulin degludec 200 unit/mL (3 78 unit (0.39 mL) subcut HS #36 mL 04/26/23 mL) subcutaneous pen (Tresiba FlexTouch U-200 insulin) pen needle, diabetic 31 gauge x #100 ea 05/10/2303/19" (BD Ultra-Fine Short Pen Needle) Results & Data (ED) Vital Signs Vital Signs - 24 hr 06/21/23 17:02 06/21/23 17:02 06/21/23 17:02 Temperature 37 C Temperature Source Oral Pulse Rate 80 Pulse Rate from SpO2 Sensor Pulse Rhythm Respiratory Rate 22 Respiratory Effort / Characteristics Labored SOB on Exertion Respiratory Depth Respiratory Pattern Regular Blood Pressure 165/93 H Blood Pressure Mean 117 Pulse Oximetry 94 Oxygen Delivery Method Nasal Cannula Nasal Cannula Oxygen Flow Rate 6 6 Fraction of Inspired Oxygen SaO2/FiO2 Ratio Sepsis Recent Fever Within 48 Hours No Sepsis New/Unexplained Change in Mental Status No Sepsis Action Taken by Nursing No Action Required 06/21/23 17:02 06/21/23 17:26 06/21/23 17:18 Temperature Temperature Source Pulse Rate 65 76 Pulse Rate from SpO2 Sensor Pulse Rhythm Irregular Respiratory Rate 22 Respiratory Effort / Characteristics Respiratory Depth Normal Respiratory Pattern Blood Pressure Blood Pressure Mean Pulse Oximetry 98 98 Oxygen Delivery Method Room Air Nasal Cannula Oxygen Flow Rate 6 Fraction of Inspired Oxygen SaO2/FiO2 Ratio Sepsis Recent Fever Within 48 Hours Sepsis New/Unexplained Change in Mental Status Sepsis Action Taken by Nursing 06/21/23 17:18 06/21/23 17:30 06/21/23 18:59 Temperature Temperature Source Pulse Rate 76 76 57 L Pulse Rate from SpO2 Sensor 79 74 Pulse Rhythm Respiratory Rate 24 19 17 Respiratory Effort / Characteristics Spontaneous Respiratory Depth Respiratory Pattern Blood Pressure Blood Pressure Mean Pulse Oximetry 98 95 93 Oxygen Delivery Method Nasal Cannula Oxygen Flow Rate Fraction of Inspired Oxygen 30 SaO2/FiO2 Ratio Sepsis Recent Fever Within 48 Hours Sepsis New/Unexplained Change in Mental Status Sepsis Action Taken by Nursing 06/21/23 18:00 06/21/23 18:30 06/21/23 19:00 Temperature Temperature Source Pulse Rate 76 57 L 63 Pulse Rate from SpO2 Sensor 70 57 L 58 L Pulse Rhythm Respiratory Rate 24 20 13 Respiratory Effort / Characteristics Respiratory Depth Respiratory Pattern Blood Pressure 134/83 126/76 Blood Pressure Mean 100 92 Pulse Oximetry 92 94 96 Oxygen Delivery Method Oxygen Flow Rate Fraction of Inspired Oxygen SaO2/FiO2 Ratio Sepsis Recent Fever Within 48 Hours Sepsis New/Unexplained Change in Mental Status Sepsis Action Taken by Nursing 06/21/23 19:00 Temperature Temperature Source Pulse Rate Pulse Rate from SpO2 Sensor Pulse Rhythm Respiratory Rate Respiratory Effort / Characteristics Respiratory Depth Respiratory Pattern Blood Pressure Blood Pressure Mean Pulse Oximetry 94 Oxygen Delivery Method CPAP Oxygen Flow Rate Fraction of Inspired Oxygen 30 SaO2/FiO2 Ratio 313 Sepsis Recent Fever Within 48 Hours Sepsis New/Unexplained Change in Mental Status Sepsis Action Taken by Long-Term Medications Current Medication List: was personally reviewed by me Laboratory Data Attestation: I reviewed the patient's lab results. 06/21/23 17:02 06/21/23 17:02 Lab Results 06/21/23 06/21/23 06/21/23 Range/Units 14:17 17:02 17:02 WBC 9.51 (4.8-10.8) K/ul RBC 4.97 (4.70-6.10) M/uL Hgb 14.2 (14.0-18.0) g/dl Hct 47.0 (42.0-52.0) % MCV 94.6 (80.0-100.0) fL MCH 28.6 (25.0-34.0) pg MCHC 30.2 L (32.0-36.0) g/dL RDW Std Deviation 51.5 H (36.4-46.3) fL RDW Coeff of Freda 14.7 H (11.5-14.5) % Plt Count 197 (130-400) K/uL MPV 10.2 (9.4-12.4) fL Immature Gran % (Auto) 0.2 % Neut % (Auto) 61.8 % Lymph % (Auto) 21.1 % [place] % (Auto) 12.1 % Eos % (Auto) 4.0 % Baso % (Auto) 0.8 % Neut # (Auto) 5.87 (1.40-6.50) K/uL Lymph # (Auto) 2.01 (1.2-3.4) K/uL [place] # (Auto) 1.15 H (0.11-0.59) K/uL Eos # (Auto) 0.38 (0-0.50) K/uL Baso # (Auto) 0.08 (0-0.2) K/uL Immature Gran # (Auto) 0.02 (0.01-0.20) K/uL PT (9.0-12.0) Seconds INR (0.9-1.1) APTT (21.0-31.0) Seconds PTT Ratio ABG pH (7.35-7.45) ABG pCO2 (35-46) mmHg ABG pO2 (80-95) mmHg ABG HCO3 (19-24) mmol/L ABG O2 Saturation (90-95) % ABG Base Excess (-9-1.8) mEq/L Arcadio Test (Pos) Oxygen Given Sodium 141 (136-145) mmol/L Potassium 4.7 (3.5-5.1) mmol/L Chloride 98 (98-107) mmol/L Carbon Dioxide 41 H* (21-32) mmol/L Anion Gap 2 L (3-11) BUN 50 H (6-23) mg/dl Creatinine 1.24 (0.6-1.4) mg/dl Est Cr Clr Drug Dosing 57.4 ml/min Est GFR ( Amer) 65.0 ml/min Est GFR (Non-Af Amer) 56.1 ml/min BUN/Creatinine Ratio 40.3 H (10-20) Glucose 107 H (70-99(Fasting)) mg/dl Lactate 0.8 (0.4-2.0) mmol/L Calcium 9.3 (8.6-10.3) mg/dl Magnesium 2.1 (1.7-2.4) mg/dl Total Bilirubin 1.2 H (0.2-1.0) mg/dl AST 17 (13-39) U/L ALT 12 (7-52) U/L Alkaline Phosphatase 72 (34-104) U/L Troponin I High Sens 17.2 (0-20) pg/ml B-Natriuretic Peptide (0-100) pg/ml Total Protein 7.2 (6.0-8.3) gm/dl Albumin 4.0 (3.4-5.0) gm/dl Globulin 3.2 (2.5-4.0) gm/dl Albumin/Globulin Ratio 1.3 (0.9-2) Urine Color Urine Appearance (Clear) Urine pH (4.5-7.5) Ur Specific [place] (1.000-1.030) Urine Protein (Negative) Urine Glucose (UA) (Negative) Urine Ketones (Negative) Urine Blood (Negative) Urine Nitrite (Negative) Urine Bilirubin (Negative) Urine Urobilinogen (Negative) Ur Leukocyte Esterase (Negative) Urine WBC (Auto) (0-5) /hpf Urine RBC (Auto) (0-4) /hpf U Hyaline Cast (Auto) (0-5) /lpf U Epithel Cells (Auto) (0-5) /lpf Urine Bacteria (Auto) (Negative) Adenovirus (PCR) (NotDetected) B. pertussis DNA (PCR) (NotDetected) B.parapertussis DNA PCR (NotDetected) C. pneumoniae DNA (PCR) (NotDetected) Coronavirus OC43 (PCR) (NotDetected) Coronavirus HKU1 (PCR) (NotDetected) Coronavirus 229E (PCR) (NotDetected) SARS-CoV-2 (PCR) (NotDetected) Coronavirus NL63 (PCR) (NotDetected) Human Metapneumovir PCR (NotDetected) Influenza Type A (PCR) (NotDetected) Influenza Type B (PCR) (NotDetected) M. pneumoniae (PCR) (NotDetected) Parainfluenza 1 (PCR) (NotDetected) Parainfluenza 2 (PCR) (NotDetected) Parainfluenza 3 (PCR) (NotDetected) Parainfluenza 4 (PCR) (NotDetected) RSV (PCR) (NotDetected) Entero/Rhino (PCR) (NotDetected) 06/21/23 06/21/23 06/21/23 Range/Units 17:02 17:02 17:17 WBC (4.8-10.8) K/ul RBC (4.70-6.10) M/uL Hgb (14.0-18.0) g/dl Hct (42.0-52.0) % MCV (80.0-100.0) fL MCH (25.0-34.0) pg MCHC (32.0-36.0) g/dL RDW Std Deviation (36.4-46.3) fL RDW Coeff of Freda (11.5-14.5) % Plt Count (130-400) K/uL MPV (9.4-12.4) fL Immature Gran % (Auto) % Neut % (Auto) % Lymph % (Auto) % [place] % (Auto) % Eos % (Auto) % Baso % (Auto) % Neut # (Auto) (1.40-6.50) K/uL Lymph # (Auto) (1.2-3.4) K/uL [place] # (Auto) (0.11-0.59) K/uL Eos # (Auto) (0-0.50) K/uL Baso # (Auto) (0-0.2) K/uL Immature Gran # (Auto) (0.01-0.20) K/uL PT 12.9 H (9.0-12.0) Seconds INR 1.2 H (0.9-1.1) APTT 31.0 (21.0-31.0) Seconds PTT Ratio 1.1 ABG pH (7.35-7.45) ABG pCO2 (35-46) mmHg ABG pO2 (80-95) mmHg ABG HCO3 (19-24) mmol/L ABG O2 Saturation (90-95) % ABG Base Excess (-9-1.8) mEq/L Arcadio Test (Pos) Oxygen Given Sodium (136-145) mmol/L Potassium (3.5-5.1) mmol/L Chloride (98-107) mmol/L Carbon Dioxide (21-32) mmol/L Anion Gap (3-11) BUN (6-23) mg/dl Creatinine (0.6-1.4) mg/dl Est Cr Clr Drug Dosing ml/min Est GFR ( Amer) ml/min Est GFR (Non-Af Amer) ml/min BUN/Creatinine Ratio (10-20) Glucose (70-99(Fasting)) mg/dl Lactate (0.4-2.0) mmol/L Calcium (8.6-10.3) mg/dl Magnesium (1.7-2.4) mg/dl Total Bilirubin (0.2-1.0) mg/dl AST (13-39) U/L ALT (7-52) U/L Alkaline Phosphatase (34-104) U/L Troponin I High Sens (0-20) pg/ml B-Natriuretic Peptide 122 H (0-100) pg/ml Total Protein (6.0-8.3) gm/dl Albumin (3.4-5.0) gm/dl Globulin (2.5-4.0) gm/dl Albumin/Globulin Ratio (0.9-2) Urine Color Urine Appearance (Clear) Urine pH (4.5-7.5) Ur Specific [place] (1.000-1.030) Urine Protein (Negative) Urine Glucose (UA) (Negative) Urine Ketones (Negative) Urine Blood (Negative) Urine Nitrite (Negative) Urine Bilirubin (Negative) Urine Urobilinogen (Negative) Ur Leukocyte Esterase (Negative) Urine WBC (Auto) (0-5) /hpf Urine RBC (Auto) (0-4) /hpf U Hyaline Cast (Auto) (0-5) /lpf U Epithel Cells (Auto) (0-5) /lpf Urine Bacteria (Auto) (Negative) Adenovirus (PCR) Not Detected (NotDetected) B. pertussis DNA (PCR) Not Detected (NotDetected) B.parapertussis DNA PCR Not Detected (NotDetected) C. pneumoniae DNA (PCR) Not Detected (NotDetected) Coronavirus OC43 (PCR) Not Detected (NotDetected) Coronavirus HKU1 (PCR) Not Detected (NotDetected) Coronavirus 229E (PCR) Not Detected (NotDetected) SARS-CoV-2 (PCR) Not Detected (NotDetected) Coronavirus NL63 (PCR) Not Detected (NotDetected) Human Metapneumovir PCR Not Detected (NotDetected) Influenza Type A (PCR) Not Detected (NotDetected) Influenza Type B (PCR) Not Detected (NotDetected) M. pneumoniae (PCR) Not Detected (NotDetected) Parainfluenza 1 (PCR) Not Detected (NotDetected) Parainfluenza 2 (PCR) Not Detected (NotDetected) Parainfluenza 3 (PCR) Not Detected (NotDetected) Parainfluenza 4 (PCR) Not Detected (NotDetected) RSV (PCR) Not Detected (NotDetected) Entero/Rhino (PCR) Not Detected (NotDetected) 06/21/23 06/21/23 Range/Units 19:22 19:35 WBC (4.8-10.8) K/ul RBC (4.70-6.10) M/uL Hgb (14.0-18.0) g/dl Hct (42.0-52.0) % MCV (80.0-100.0) fL MCH (25.0-34.0) pg MCHC (32.0-36.0) g/dL RDW Std Deviation (36.4-46.3) fL RDW Coeff of Freda (11.5-14.5) % Plt Count (130-400) K/uL MPV (9.4-12.4) fL Immature Gran % (Auto) % Neut % (Auto) % Lymph % (Auto) % [place] % (Auto) % Eos % (Auto) % Baso % (Auto) % Neut # (Auto) (1.40-6.50) K/uL Lymph # (Auto) (1.2-3.4) K/uL [place] # (Auto) (0.11-0.59) K/uL Eos # (Auto) (0-0.50) K/uL Baso # (Auto) (0-0.2) K/uL Immature Gran # (Auto) (0.01-0.20) K/uL PT (9.0-12.0) Seconds INR (0.9-1.1) APTT (21.0-31.0) Seconds PTT Ratio ABG pH 7.39 (7.35-7.45) ABG pCO2 70 H (35-46) mmHg ABG pO2 78 L (80-95) mmHg ABG HCO3 42 H (19-24) mmol/L ABG O2 Saturation 96.4 H (90-95) % ABG Base Excess 14.0 H (-9-1.8) mEq/L Arcadio Test Pos (Pos) Oxygen Given 30% Sodium (136-145) mmol/L Potassium (3.5-5.1) mmol/L Chloride (98-107) mmol/L Carbon Dioxide (21-32) mmol/L Anion Gap (3-11) BUN (6-23) mg/dl Creatinine (0.6-1.4) mg/dl Est Cr Clr Drug Dosing ml/min Est GFR ( Amer) ml/min Est GFR (Non-Af Amer) ml/min BUN/Creatinine Ratio (10-20) Glucose (70-99(Fasting)) mg/dl Lactate (0.4-2.0) mmol/L Calcium (8.6-10.3) mg/dl Magnesium (1.7-2.4) mg/dl Total Bilirubin (0.2-1.0) mg/dl AST (13-39) U/L ALT (7-52) U/L Alkaline Phosphatase (34-104) U/L Troponin I High Sens (0-20) pg/ml B-Natriuretic Peptide (0-100) pg/ml Total Protein (6.0-8.3) gm/dl Albumin (3.4-5.0) gm/dl Globulin (2.5-4.0) gm/dl Albumin/Globulin Ratio (0.9-2) Urine Color Yellow Urine Appearance Clear (Clear) Urine pH 6.0 (4.5-7.5) Ur Specific [place] 1.009 (1.000-1.030) Urine Protein 1+ H (Negative) Urine Glucose (UA) Negative (Negative) Urine Ketones Negative (Negative) Urine Blood Negative (Negative) Urine Nitrite Negative (Negative) Urine Bilirubin Negative (Negative) Urine Urobilinogen Negative (Negative) Ur Leukocyte Esterase Negative (Negative) Urine WBC (Auto) 0 (0-5) /hpf Urine RBC (Auto) 0-4 (0-4) /hpf U Hyaline Cast (Auto) 1-5 (0-5) /lpf U Epithel Cells (Auto) 0-5 (0-5) /lpf Urine Bacteria (Auto) Negative (Negative) Adenovirus (PCR) (NotDetected) B. pertussis DNA (PCR) (NotDetected) B.parapertussis DNA PCR (NotDetected) C. pneumoniae DNA (PCR) (NotDetected) Coronavirus OC43 (PCR) (NotDetected) Coronavirus HKU1 (PCR) (NotDetected) Coronavirus 229E (PCR) (NotDetected) SARS-CoV-2 (PCR) (NotDetected) Coronavirus NL63 (PCR) (NotDetected) Human Metapneumovir PCR (NotDetected) Influenza Type A (PCR) (NotDetected) Influenza Type B (PCR) (NotDetected) M. pneumoniae (PCR) (NotDetected) Parainfluenza 1 (PCR) (NotDetected) Parainfluenza 2 (PCR) (NotDetected) Parainfluenza 3 (PCR) (NotDetected) Parainfluenza 4 (PCR) (NotDetected) RSV (PCR) (NotDetected) Entero/Rhino (PCR) (NotDetected) Administered Medications Discontinued Medications Furosemide (Furosemide 40 Mg/4 Ml Vial) 40 mg IV ONE ONE Stop: 06/21/23 17:38 Last Admin: 06/21/23 17:49 Dose: 40 mg Documented By: [facility] Imaging Data Radiologist's Impression: Chest X-Ray 06/21/23 17:17 XR chest 1V portable HISTORY: Dyspnea COMPARISON: Chest 04/02/2022. FINDINGS: No pneumothorax. No pleural effusions. The cortex with remains enlarged. There are poststernotomy changes. There is a mildly tortuous and calcified thoracic aorta, unchanged. There is mild central pulmonary vascular congestion without overt edema. Interstitial thickening at the lung bases remains unchanged and is likely chronic. No new focal lung consolidations to suggest pneumonia. IMPRESSION: Cardiomegaly and mild pulmonary vascular congestion. ACT 112: Negative or not required by law. Electronically signed by: Dylan Eduardo M.D. 06/21/2023 5:45 PM Discharge Plan Visit Data Chief Complaint: Shortness of Breath/Dyspnea Stated Complaint: SOB X2 WEEKS ED Provider: Dago Pierce Discharge Problem: Hypoxia, CHF (congestive heart failure), SOB (shortness of breath), Carbon dioxide retention Patient Disposition: Admitted As Inpatient Condition: Fair Discharge Instructions Interventions: ED Discharge Assessment Last Done: 06/21/23 21:09 Forms Stand Alone Forms: My [employer] Prescriptions Prescriptions: No Action gabapentin 100 mg capsule 100 mg PO TID Qty: 300 3RF finasteride 5 mg tablet 5 mg PO DAILY Qty: 90 3RF (DME) FreeStyle [place]ese[place] 14 Day Sensor Kit See Rx Instructions .ROUTE .MEDSUPPLY Qty: 6 1RF Rx Instructions: As directed E11.40 Test 4x/day amlodipine 2.5 mg tablet 2.5 mg PO DAILY Qty: 90 0RF atorvastatin 40 mg tablet 40 mg PO DAILY Qty: 90 1RF Eliquis 5 mg tablet 5 mg PO BID Qty: 180 3RF omeprazole 20 mg capsule,delayed release(DR/EC) 20 mg PO DAILY Qty: 90 3RF lisinopril 5 mg tablet 5 mg PO DAILY Qty: 90 3RF Rx Instructions: Per dr 1st Tresiba FlexTouch U-200 200 unit/mL (3 mL) insulin pen 78 unit SUBCUT HS Qty: 36 1RF (DME) pen needle, diabetic [BD Ultra-Fine Short Pen Needle] 31 gauge x 5/16" needle See Rx Instructions .Route Qty: 100 3RF Rx Instructions: As directed folic acid 800 mcg tablet 0.8 mg PO DAILY ascorbic acid (vitamin C) 1,000 mg tablet 1 gm PO DAILY aspirin 81 mg tablet,delayed release (DR/EC) 81 mg PO DAILY (DME) insulin admin supplies insulin pen See Dose Instructions .ROUTE .MEDSUPPLY Qty: 1 3RF Dose Instruction: As directed Rx Instructions: As directed: use with insulin 3 time a day Ozempic 1 mg/dose (2 mg/1.5 mL) pen injector 1 mg SQ WK Rx Instructions: TAKE THIS MED EVERY SATURDAY (DME) FreeStyle [place]esean 14 Day [place] Misc See Rx Instructions .ROUTE .MEDSUPPLY Qty: 1 0RF Rx Instructions: As directed E11.40 Test 4x/day (DME) Left prosthetic limb K3 See Rx Instructions .Route .MEDSUPPLY Qty: 1 0RF Rx Instructions: As directed insulin aspart U-100 [Novolog U-100 Insulin aspart] 100 unit/mL solution 18 unit subcut TID Rx Instructions: Inject before meals, Max 48 u SQ /24 hrs metformin 500 mg tablet extended release 24 hr 1,000 mg PO DAILY silver sulfadiazine [Silvadene] 1 % Cream 1 applic TOPICAL DAILY Rx Instructions: apply a 1.5 mm thickness, cover with dry bandage. diphenoxylate-atropine [Lomotil] 2.5-0.025 mg Tablet 1 tab PO BID PRN (Reason: Diarrhea) Saccharomyces boulardii [Florastor] 250 mg Capsule 250 mg PO QAM Anoro Ellipta 62.5-25 mcg/actuation Blister With Device 1 inh INHALATION DAILY torsemide 20 mg tablet 20 mg PO DAILY metoprolol succinate 100 mg tablet extended release 24 hr 100 mg PO DAILY Referrals Referrals: Luan Pelaez MD [Primary Care Provider] -
[2023-06-21] MEDS ORDERED: FUROSEMIDE 40 MG/4 ML VIAL IV ONE (17:37)
[2023-06-21 17:45] LABS: Basophils # (auto) 0.08 K/uL (0-0.2); Basophils % (auto) 0.8 %; Eosinophils # (auto) 0.38 K/uL (0-0.50); Hemoglobin 14.2 g/dl (14.0-18.0); Immature Granulocytes # (auto) 0.02 K/uL (0.01-0.20); Immature Granulocytes % (auto) 0.2 %; Lymphocytes # (auto) 2.01 K/uL (1.2-3.4); Lymphocytes % (auto) 21.1 %; Mean Corpuscular Hemoglobin 28.6 pg (25.0-34.0); Mean Corpuscular Hgb Conc 30.2 g/dL (32.0-36.0); Mean Corpuscular Volume 94.6 fL (80.0-100.0); Mean Platelet Volume 10.2 fL (9.4-12.4); Monocytes # (auto) 1.15 K/uL (0.11-0.59); Monocytes % (auto) 12.1 %; Neutrophils # (auto) 5.87 K/uL (1.40-6.50); Neutrophils % (auto) 61.8 %; Platelet Count 197 K/uL (130-400); RDW Coefficient of Variation 14.7 % (11.5-14.5); RDW Standard Deviation 51.5 fL (36.4-46.3); Red Blood Count 4.97 M/uL (4.70-6.10); White Blood Count 9.51 K/ul (4.8-10.8)
--- NOTE | 2023-06-21 17:46 | XRay Report ---
XR chest 1V portable HISTORY: Dyspnea COMPARISON: Chest 04/02/2022. FINDINGS: No pneumothorax. No pleural effusions. The cortex with remains enlarged. There are postster notomy changes. There is a mildly tortuous and calcified thoracic aorta, unchanged. There is mild kendall tral pulmonary vascular congestion without overt edema. Interstitial thickening at the lung bases rem ains unchanged and is likely chronic. No new focal lung consolidations to suggest pneumonia. IMPRESSION: Cardiomegaly and mild pulmonary vascular congestion. ACT 112: Negative or not required by law. Electronically signed by: Dylan Eduardo M.D. 06/21/2023 5:45 PM
[2023-06-21 18:21] LABS: Albumin Globulin Ratio 1.3 (0.9-2); BUN Creatinine Ratio 40.3 (10-20); Bilirubin,Total 1.2 mg/dl (0.2-1.0); Calcium 9.3 mg/dl (8.6-10.3); Creatinine Clr Calc Pharmacy 57.4 ml/min; Est GFR (Non-African American) 56.1 ml/min; Globulin 3.2 gm/dl (2.5-4.0); Magnesium 2.1 mg/dl (1.7-2.4); Potassium 4.7 mmol/L (3.5-5.1); Total Protein 7.2 gm/dl (6.0-8.3); Troponin I High Sensitivity 17.2 pg/ml (0-20)
[2023-06-21 18:31] LABS: Adenovirus PCR Not Detected (NotDetected); Bordetella parapertussis PCR Not Detected (NotDetected); Bordetella pertussis PCR Not Detected (NotDetected); Chlamydia pneumoniae PCR Not Detected (NotDetected); Coronavirus 229E PCR Not Detected (NotDetected); Coronavirus CoV-2 (COVID19)PCR Not Detected (NotDetected); Coronavirus HKU1 PCR Not Detected (NotDetected); Coronavirus NL63 PCR Not Detected (NotDetected); Coronavirus OC43PCR Not Detected (NotDetected); Human Metapneumovirus PCR Not Detected (NotDetected); Influenza A PCR Not Detected (NotDetected); Influenza B PCR Not Detected (NotDetected); Mycoplasma pneumoniae PCR Not Detected (NotDetected); Parainfluenza Virus 1 PCR Not Detected (NotDetected); Parainfluenza Virus 2 PCR Not Detected (NotDetected); Parainfluenza Virus 3 PCR Not Detected (NotDetected); Parainfluenza Virus 4 PCR Not Detected (NotDetected); Respiratory Syncytial VirusPCR Not Detected (NotDetected); Rhinovirus/Enterovirus PCR Not Detected (NotDetected)
[2023-06-21 18:35] LABS: INR 1.2 (0.9-1.1); Partial Thromboplastin Ratio 1.1; Prothrombin Time 12.9 Seconds (9.0-12.0)
[2023-06-21 19:30] LABS: HCO3 ABG 42 mmol/L (19-24); Oxygen Saturation ABG 96.4 % (90-95); PCO2 ABG 70 mmHg (35-46); PO2 ABG 78 mmHg (80-95); pH ABG 7.39 (7.35-7.45)
[2023-06-21 19:32] LABS: Allen Test Pos (Pos)
[2023-06-21 20:05] LABS: Appearance Urine Clear (Clear); Bacteria Urine Automated Negative (Negative); Bilirubin Urine Negative (Negative); Blood Urine Negative (Negative); Color Urine Yellow; Epithelial Cell Urine Auto 0-5 /lpf (0-5); Glucose Urine UA Negative (Negative); Ketones Urine Negative (Negative); Leukocyte Esterase Urine Negative (Negative); Nitrite Urine Negative (Negative); Protein Urine 1+ (Negative); RBC Urine Automated 0-4 /hpf (0-4); Specific Gravity Urine 1.009 (1.000-1.030); Urobilinogen Urine Negative (Negative); WBC Urine Automated 0 /hpf (0-5)
--- NOTE | 2023-06-21 20:14 | History & Physical Report ---
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 Given furosemide 40 mg IV in the ED We will add acetazolamide 500mg IV x1 now due to beginning bicarb of 41 Admit on furosemide 40 mg IV every morning and acetazolamide 250 mg IV every morning Follow serial CBC with differential, BMP, magnesium level Continue amlodipine, apixaban, aspirin, metoprolol Hold lisinopril COPD- Continue usual inhalers: Anoro Ellipta Diabetes mellitus- Hold metformin Change Tresiba from 78 units subcu daily to glargine 50 units subcu daily History of Present Illness Chief Complaint: The patient presents to the ED with 2 weeks of persistent and worsening SOB/RANGEL Primary Care Provider: Luan Pelaez MD The patient is a 77-year-old male with past medical history including pulmonary embolism, chronic heart failure with preserved ejection fraction, paroxysmal atrial fibrillation, hypertension, atrial flutter, diabetes mellitus type CAD, COPD, status post CABG, peripheral artery vascular disease, diabetic neuropathy, sleep apnea, history of coronary stent and MRSA. The patient continues to take medications as directed. He has gradually had worsening of shortness of breath over the past couple weeks. Allergies Allergy/AdvReac Type Severity Reaction Status Date / Time No Known Drug Allergies Allergy 0 Verified 06/21/23 19:39 Home Medications Medication Instructions Recorded Confirmed Type ascorbic acid (vitamin C) 1,000 mg 1 gm PO DAILY 04/13/19 06/21/23 History tablet folic acid 800 mcg tablet 0.8 mg PO DAILY 04/13/19 06/21/23 History aspirin 81 mg tablet,delayed 81 mg PO DAILY 04/17/19 06/21/23 History release insulin admin supplies #1 ea 04/17/19 06/21/23 Rx semaglutide 1 mg/dose (2 mg/1.5 1 mg subcut WK 10/05/20 06/21/23 History mL) subcutaneous pen injector (Ozempic) flash glucose scanning reader #1 ea 11/18/20 06/21/23 Rx (FreeStyle Desean 14 Day [place]) Left prosthetic limb K3 #1 ea 03/08/21 06/21/23 Rx gabapentin 100 mg capsule 100 mg PO TID #300 caps 05/09/22 06/21/23 Rx metformin 500 mg tablet,extended 1,000 mg PO DAILY 06/05/22 06/21/23 History release 24 hr finasteride 5 mg tablet 5 mg PO DAILY #90 tabs 08/24/22 06/21/23 Rx insulin aspart U-100 100 unit/mL 18 unit subcut TID 10/23/22 06/21/23 History subcutaneous solution (Novolog U-100 Insulin aspart) flash glucose sensor (FreeStyle #6 ea 12/27/22 06/21/23 Rx Desean 14 Day Sensor kit) amlodipine 2.5 mg tablet 2.5 mg PO DAILY #90 tabs 01/02/23 06/21/23 Rx atorvastatin 40 mg tablet 40 mg PO DAILY #90 tabs 02/25/23 06/21/23 Rx apixaban 5 mg tablet (Eliquis) 5 mg PO BID #180 tabs 03/13/23 06/21/23 Rx omeprazole 20 mg capsule,delayed 20 mg PO DAILY #90 caps 03/13/23 06/21/23 Rx release lisinopril 5 mg tablet 5 mg PO DAILY #90 tabs 04/09/23 06/21/23 Rx insulin degludec 200 unit/mL (3 78 unit (0.39 mL) subcut HS #36 mL 04/26/23 06/21/23 Rx mL) subcutaneous pen (Tresiba FlexTouch U-200 insulin) pen needle, diabetic 31 gauge x #100 ea 05/10/23 06/21/23 Rx 5/16" (BD Ultra-Fine Short Pen Needle) Saccharomyces boulardii 250 mg 250 mg PO QAM 06/21/23 06/21/23 History capsule (Florastor) diphenoxylate-atropine 2.5 1 tab PO BID PRN Diarrhea 06/21/23 06/21/23 History mg-0.025 mg tablet (Lomotil) metoprolol succinate 100 mg 100 mg PO DAILY 06/21/23 06/21/23 History tablet,extended release 24 hr silver sulfadiazine 1 % topical 1 applic topical DAILY 06/21/23 06/21/23 History cream (Silvadene) torsemide 20 mg tablet 20 mg PO DAILY 06/21/23 06/21/23 History umeclidinium 62.5 mcg-vilanterol 1 inh inhalation DAILY 06/21/23 06/21/23 History 25 mcg/actuation powdr for inhalation (Anoro Ellipta) Past Med/Surg History Medical History Acute renal failure Aortic stenosis Atrial flutter Benign essential hypertension Chronic heart failure with preserved ejection fraction COPD (chronic obstructive pulmonary disease) Diabetes mellitus type 1 History of shingles HX: nursing home anticoagulant use Hypercholesterolemia Hypertension FAIZA (obstructive sleep apnea) PAF (paroxysmal atrial fibrillation) PE (pulmonary embolism) Surgical History Amputation below knee History of aortic valve replacement History of cataract surgery History of cholecystectomy History of colonoscopy History of heart artery stent S/P CABG (coronary artery bypass graft) Family History Brother Liver cancer Coronary heart disease Diabetes Father Cancer Diabetes Coronary heart disease Mother Diabetes Brother Coronary heart disease Myocardial infarction Denies family history of Ovarian cancer Prostate cancer Breast cancer Colorectal cancer Social History (Updated 02/19/23 @ 09:46 by Fozia Vazquez) Smoking Status: Former smoker Tobacco Type: Cigarettes Age Started Using Tobacco: 17; Age Quit Using Tobacco: 59; packs per day: 2; Second Hand Exposure: Yes; Do You Dip or Chew Tobacco: No; Hx Alcohol Use: No Hx Substance Use: No Preferred Language: Indian Communication Ability: Effective Visual Impairment: Partially Limited Hearing Ability: Use of Hearing Aid Balloon Tester Required: Yes Beliefs That Will Affect Care: None marital status: Single Current Living Situation: Alone current occupational status: retired How many Children do You have: 0 Feels Safe at Home: Yes Childhood Exposure to Second-Hand Smoke: Yes Diet: regular caffeine: Yes (coffee) during the past year weight has: remained stable Dental Care, Regularly: No Physical Activity Frequency: Does not Exercise Seatbelt Use: always Sunscreen Use: No Do you think of yourself as: straight/heterosexual Gender Identity: Male Assistive Devices: Cane, Glasses and Hearing Aid - Bilateral Review of Systems Review of Systems: The patient denies chest pain, palpitations, lower extremity swelling, sore throat, fevers, chills, sweats, nausea, vomiting, diarrhea , constipation, abdominal pain, pelvic pain, blood in urine or stool, dysuria, urinary frequency or urgency, lightheadedness, dizziness, headache, memory loss, loss of consciousness, rash, abnormal bruising or bleeding, imbalance, focal weakness, numbness or tingling in arms or legs, generalized arthralgias or myalgias, back or neck pain, or night sweats. The review of systems is otherwise negative other than for that already noted above, and at least 10 systems have been reviewed. Physical Exam Physical Exam: The patient is awake, alert and oriented 3, well developed and well nourished, normocephalic and atraumatic, sitting upright in bed and in mild respiratory distress. HEENT--PERRL, EOMI, mucous membranes and oropharynx dry. Neck--supple. No JVD. No bruits. Thyroid normal, trachea midline, no adenopathy. Heart--normal S1 and S2. No murmurs, rubs or gallops. Lungs--crackles at the bases bilaterally. Mild respiratory distress on BiPAP, no accessory muscle use. Abdomen--normal bowel sounds and soft. Nontender. Nondistended, no hernias or masses, no organomegaly. Extremities--no cyanosis or clubbing. No edema. Dermatologic--normal skin turgor, normal color, no abnormal lymph nodes, no rash. Neurologic--cranial nerves II through XII grossly intact. Rheumatologic--normal range of motion. Psychiatric--normal affect. Results & Data Results & Data Vital Signs (Past 12 Hours) Vital Signs Temp Pulse Resp BP Pulse Ox O2 Del Method O2 Flow Rate 06/21/23 19:00 63 13 126/76 96 06/21/23 18:30 57 L 20 94 06/21/23 18:00 76 24 134/83 92 06/21/23 19:00 Room Air 06/21/23 18:59 57 L 17 93 06/21/23 17:30 76 19 95 Nasal Cannula 06/21/23 17:18 76 24 98 06/21/23 17:18 76 06/21/23 17:26 65 98 Nasal Cannula 6 06/21/23 17:02 22 98 Room Air 06/21/23 17:02 Nasal Cannula 6 06/21/23 17:02 37 C 80 22 165/93 H 94 Nasal Cannula 6 FiO2 06/21/23 19:00 06/21/23 18:30 06/21/23 18:00 06/21/23 19:00 06/21/23 18:59 30 06/21/23 17:30 06/21/23 17:18 06/21/23 17:18 06/21/23 17:26 06/21/23 17:02 06/21/23 17:02 06/21/23 17:02 Laboratory Results Laboratory Results WBC 9.51 K/ul (4.8-10.8) 06/21/23 17:02 RBC 4.97 M/uL (4.70-6.10) 06/21/23 17:02 Hgb 14.2 g/dl (14.0-18.0) 06/21/23 17:02 Hct 47.0 % (42.0-52.0) 06/21/23 17:02 MCV 94.6 fL (80.0-100.0) 06/21/23 17:02 MCH 28.6 pg (25.0-34.0) 06/21/23 17:02 MCHC 30.2 g/dL (32.0-36.0) L 06/21/23 17:02 RDW Std Deviation 51.5 fL (36.4-46.3) H 06/21/23 17:02 RDW Coeff of Freda 14.7 % (11.5-14.5) H 06/21/23 17:02 Plt Count 197 K/uL (130-400) 06/21/23 17:02 MPV 10.2 fL (9.4-12.4) 06/21/23 17:02 Immature Gran % (Auto) 0.2 % 06/21/23 17:02 Neut % (Auto) 61.8 % 06/21/23 17:02 Lymph % (Auto) 21.1 % 06/21/23 17:02 Gentry % (Auto) 12.1 % 06/21/23 17:02 Eos % (Auto) 4.0 % 06/21/23 17:02 Baso % (Auto) 0.8 % 06/21/23 17:02 Neut # (Auto) 5.87 K/uL (1.40-6.50) 06/21/23 17:02 Lymph # (Auto) 2.01 K/uL (1.2-3.4) 06/21/23 17:02 Gentry # (Auto) 1.15 K/uL (0.11-0.59) H 06/21/23 17:02 Eos # (Auto) 0.38 K/uL (0-0.50) 06/21/23 17:02 Baso # (Auto) 0.08 K/uL (0-0.2) 06/21/23 17:02 Immature Gran # (Auto) 0.02 K/uL (0.01-0.20) 06/21/23 17:02 PT 12.9 Seconds (9.0-12.0) H 06/21/23 17:02 INR 1.2 (0.9-1.1) H 06/21/23 17:02 APTT 31.0 Seconds (21.0-31.0) 06/21/23 17:02 PTT Ratio 1.1 06/21/23 17:02 ABG pH 7.39 (7.35-7.45) 06/21/23 19:22 ABG pCO2 70 mmHg (35-46) H 06/21/23 19:22 ABG pO2 78 mmHg (80-95) L 06/21/23 19:22 ABG HCO3 42 mmol/L (19-24) H 06/21/23 19:22 ABG O2 Saturation 96.4 % (90-95) H 06/21/23 19:22 ABG Base Excess 14.0 mEq/L (-9-1.8) H 06/21/23 19:22 Arcadio Test Pos (Pos) 06/21/23 19:22 Oxygen Given 30% 06/21/23 19:22 Sodium 141 mmol/L (136-145) 06/21/23 17:02 Potassium 4.7 mmol/L (3.5-5.1) 06/21/23 17:02 Chloride 98 mmol/L (98-107) 06/21/23 17:02 Carbon Dioxide 41 mmol/L (21-32) H* 06/21/23 17:02 Anion Gap 2 (3-11) L 06/21/23 17:02 BUN 50 mg/dl (6-23) H 06/21/23 17:02 Creatinine 1.24 mg/dl (0.6-1.4) 06/21/23 17:02 Est Cr Clr Drug Dosing 57.4 ml/min 06/21/23 17:02 Est GFR ( Amer) 65.0 ml/min 06/21/23 17:02 Est GFR (Non-Af Amer) 56.1 ml/min 06/21/23 17:02 BUN/Creatinine Ratio 40.3 (10-20) H 06/21/23 17:02 Glucose 107 mg/dl (70-99(Fasting)) H 06/21/23 17:02 Lactate 0.8 mmol/L (0.4-2.0) 06/21/23 14:17 Calcium 9.3 mg/dl (8.6-10.3) 06/21/23 17:02 Magnesium 2.1 mg/dl (1.7-2.4) 06/21/23 17:02 Total Bilirubin 1.2 mg/dl (0.2-1.0) H 06/21/23 17:02 AST 17 U/L (13-39) 06/21/23 17:02 ALT 12 U/L (7-52) 06/21/23 17:02 Alkaline Phosphatase 72 U/L (34-104) 06/21/23 17:02 Troponin I High Sens 17.2 pg/ml (0-20) 06/21/23 17:02 B-Natriuretic Peptide 122 pg/ml (0-100) H 06/21/23 17:02 Total Protein 7.2 gm/dl (6.0-8.3) 06/21/23 17:02 Albumin 4.0 gm/dl (3.4-5.0) 06/21/23 17:02 Globulin 3.2 gm/dl (2.5-4.0) 06/21/23 17:02 Albumin/Globulin Ratio 1.3 (0.9-2) 06/21/23 17:02 Urine Color Yellow 06/21/23 19:35 Urine Appearance Clear (Clear) 06/21/23 19:35 Urine pH 6.0 (4.5-7.5) 06/21/23 19:35 Ur Specific Daniel 1.009 (1.000-1.030) 06/21/23 19:35 Urine Protein 1+ (Negative) H 06/21/23 19:35 Urine Glucose (UA) Negative (Negative) 06/21/23 19:35 Urine Ketones Negative (Negative) 06/21/23 19:35 Urine Blood Negative (Negative) 06/21/23 19:35 Urine Nitrite Negative (Negative) 06/21/23 19:35 Urine Bilirubin Negative (Negative) 06/21/23 19:35 Urine Urobilinogen Negative (Negative) 06/21/23 19:35 Ur Leukocyte Esterase Negative (Negative) 06/21/23 19:35 Urine WBC (Auto) 0 /hpf (0-5) 06/21/23 19:35 Urine RBC (Auto) 0-4 /hpf (0-4) 06/21/23 19:35 U Hyaline Cast (Auto) 1-5 /lpf (0-5) 06/21/23 19:35 U Epithel Cells (Auto) 0-5 /lpf (0-5) 06/21/23 19:35 Urine Bacteria (Auto) Negative (Negative) 06/21/23 19:35 Adenovirus (PCR) Not Detected (NotDetected) 06/21/23 17:17 B. pertussis DNA (PCR) Not Detected (NotDetected) 06/21/23 17:17 B.parapertussis DNA PCR Not Detected (NotDetected) 06/21/23 17:17 C. pneumoniae DNA (PCR) Not Detected (NotDetected) 06/21/23 17:17 Coronavirus OC43 (PCR) Not Detected (NotDetected) 06/21/23 17:17 Coronavirus HKU1 (PCR) Not Detected (NotDetected) 06/21/23 17:17 Coronavirus 229E (PCR) Not Detected (NotDetected) 06/21/23 17:17 SARS-CoV-2 (PCR) Not Detected (NotDetected) 06/21/23 17:17 Coronavirus NL63 (PCR) Not Detected (NotDetected) 06/21/23 17:17 Human Metapneumovir PCR Not Detected (NotDetected) 06/21/23 17:17 Influenza Type A (PCR) Not Detected (NotDetected) 06/21/23 17:17 Influenza Type B (PCR) Not Detected (NotDetected) 06/21/23 17:17 M. pneumoniae (PCR) Not Detected (NotDetected) 06/21/23 17:17 Parainfluenza 1 (PCR) Not Detected (NotDetected) 06/21/23 17:17 Parainfluenza 2 (PCR) Not Detected (NotDetected) 06/21/23 17:17 Parainfluenza 3 (PCR) Not Detected (NotDetected) 06/21/23 17:17 Parainfluenza 4 (PCR) Not Detected (NotDetected) 06/21/23 17:17 RSV (PCR) Not Detected (NotDetected) 06/21/23 17:17 Entero/Rhino (PCR) Not Detected (NotDetected) 06/21/23 17:17 Impressions Chest X-Ray 06/21/23 17:17 XR chest 1V portable HISTORY: Dyspnea COMPARISON: Chest 04/02/2022. FINDINGS: No pneumothorax. No pleural effusions. The cortex with remains enlarged. There are poststernotomy changes. There is a mildly tortuous and calcified thoracic aorta, unchanged. There is mild central pulmonary vascular congestion without overt edema. Interstitial thickening at the lung bases remains unchanged and is likely chronic. No new focal lung consolidations to suggest pneumonia. IMPRESSION: Cardiomegaly and mild pulmonary vascular congestion. ACT 112: Negative or not required by law. Electronically signed by: Dylan Eduardo M.D. 06/21/2023 5:45 PM Code Status & VTE Plan Code Status Full code VTE Prophylaxis Plan VTE Prophylaxis will be ordered: Yes PG Care Time/CCT Total # of Minutes Spent Total Time Spent with Patient: Total time spent is greater than 50% in coordination of care (as documented) at patient's floor/unit and/or counseling patient: Coding Level of Care Code 29786 INT INP/OBS CARE 3/75MIN Diagnoses PAF (paroxysmal atrial fibrillation) I48.0 Hypertension I10 PE (pulmonary embolism) I26.99 Acute on chronic respiratory failure with hypoxia J96.21 Acute on chronic heart failure with preserved ejection fraction (HFpEF) I50.33 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
[2023-06-21] MEDS ORDERED: GLUCAGON FOR INJ 1 MG VIAL SQ PRN (21:41)
[2023-06-21] MEDS ORDERED: ACETAMINOPHEN 325 MG TAB PO PRN (21:41)
[2023-06-21] MEDS ORDERED: DEXTROSE 50% 50 ML SYRINGE IV PRN (21:41)
[2023-06-21] MEDS ORDERED: GLUCOSE 10 TAB/TUBE PO PRN (21:41)
[2023-06-21] MEDS ORDERED: ONDANSETRON INJ 2 MG/ML 2 ML VIAL IV PRN (21:41)
[2023-06-21] MEDS ORDERED: CARBOHYDRATES FOR HYPOGLYCEMIA PO PRN (21:41)
[2023-06-21] MEDS ORDERED: GLUCOSE 40% GEL 15 GM TUBE PO PRN (21:41)
[2023-06-21] MEDS ORDERED: acetaZOLAMIDE 500 MG in SYRINGE 0 ML IV ONE (22:00)
[2023-06-21] MEDS: INSULIN ASPART PER UNIT CHARGE SC SCH (22:18)
[2023-06-21] MEDS: APIXABAN 5 MG TABLET PO SCH (22:21)
[2023-06-21] MEDS: GABAPENTIN 100 MG CAP PO SCH (22:21)
[2023-06-22 07:01] LABS: Albumin Level 3.8 gm/dl (3.4-5.0); BUN Creatinine Ratio 35.7 (10-20); Calcium 9.4 mg/dl (8.6-10.3); Creatinine Clr Calc Pharmacy 57.5 ml/min; Est GFR (African American) 63.8 ml/min; Magnesium 2.3 mg/dl (1.7-2.4); Phosphorus 4.2 mg/dl (2.5-4.9); Potassium 4.6 mmol/L (3.5-5.1)
[2023-06-22 07:50] LABS: Hematocrit (blood only) 48.8 % (42.0-52.0); Hemoglobin 14.1 g/dl (14.0-18.0); Mean Corpuscular Hemoglobin 28.2 pg (25.0-34.0); Mean Corpuscular Hgb Conc 28.9 g/dL (32.0-36.0); Mean Corpuscular Volume 97.6 fL (80.0-100.0); Mean Platelet Volume 10.1 fL (9.4-12.4); Platelet Count 188 K/uL (130-400); RDW Coefficient of Variation 14.7 % (11.5-14.5); White Blood Count 8.85 K/ul (4.8-10.8)
[2023-06-22 07:54] LABS: INR 1.2 (0.9-1.1); Partial Thromboplastin Ratio 1.1; Partial Thromboplastin Time 31.2 Seconds (21.0-31.0); Prothrombin Time 12.9 Seconds (9.0-12.0)
[2023-06-22 08:05] LABS: Basophils # (auto) 0.07 K/uL (0-0.2); Basophils % (auto) 0.8 %; Eosinophils % (auto) 4.5 %; Hypochromasia Present; Immature Granulocytes # (auto) 0.02 K/uL (0.01-0.20); Immature Granulocytes % (auto) 0.2 %; Lymphocytes # (auto) 1.76 K/uL (1.2-3.4); Lymphocytes % (auto) 19.9 %; Monocytes # (auto) 1.02 K/uL (0.11-0.59); Monocytes % (auto) 11.5 %; Neutrophils # (auto) 5.58 K/uL (1.40-6.50); Neutrophils % (auto) 63.1 %
[2023-06-22 08:06] LABS: Estimated Average Glucose 180 mg/dl; Hemoglobin A1C 7.9 % (4.5-5.6)
[2023-06-22] MEDS: ASCORBIC ACID 500 MG TAB PO SCH (08:38)
[2023-06-22] MEDS: UMECLIDINIUM/VILANTEROL 62.5/25MCG 7 PUFFS/INHALER INH SCH (08:38)
[2023-06-22] MEDS: APIXABAN 5 MG TABLET PO SCH ×2 (08:39→21:29)
[2023-06-22] MEDS: FOLIC ACID 400 MCG TAB PO SCH (08:39)
[2023-06-22] MEDS: amLODIPine BESYLATE 5 MG TAB PO SCH (08:39)
[2023-06-22] MEDS: METOPROLOL SUCC 50MG EXT REL TAB PO SCH (08:39)
[2023-06-22] MEDS: FINASTERIDE 5 MG TAB PO SCH (08:39)
[2023-06-22] MEDS: ASPIRIN 81 MG ECTAB PO SCH (08:39)
[2023-06-22] MEDS: PANTOprazole 40 MG TAB PO SCH (08:39)
[2023-06-22] MEDS: GABAPENTIN 100 MG CAP PO SCH ×3 (08:39→21:29)
[2023-06-22] MEDS: ATORVASTATIN 40 MG TAB PO SCH (08:39)
[2023-06-22] MEDS: SACCHAROMYCES BOULARDII 250 MG CAP PO SCH (08:39)
[2023-06-22] MEDS: INSULIN ASPART PER UNIT CHARGE SC SCH ×4 (09:27→22:10)
[2023-06-22] MEDS: FUROSEMIDE 40 MG/4 ML VIAL IV SCH (09:57)
[2023-06-22] MEDS: acetaZOLAMIDE 250 MG in SYRINGE 0 ML IV SCH (09:57)
--- NOTE | 2023-06-22 18:39 | Hospitalist Progress Note ---
Date of Service June 22, 2023 Assessment & Plan (1) Acute on chronic heart failure with preserved ejection fraction (HFpEF): Plan: Acute on chronic respiratory failure with hypoxia/acute on chronic HFpEF/CAD/hypertension/history AVR/history of stented coronary- Troponin negative on arrival at [address] [place] [address] and clinically improving with IV Lasix and acetazolamide Continue the same diuretics Continue supplemental O2 to keep pulse ox greater than 90%-May need home O2 Continue amlodipine, apixaban, aspirin, metoprolol Hold lisinopril (2) Acute on chronic respiratory failure with hypoxia: Plan: As noted above (3) PAF (paroxysmal atrial fibrillation): Plan: With atrial flutter, permanent, rate controlled Continue apixaban, metoprolol (4) Hypertension: Plan: Blood pressures are controlled Meds as above, holding lisinopril while diuresing (5) PE (pulmonary embolism): Plan: Continue Eliquis (6) 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: Plan: Diabetes mellitus- Hold metformin Continue basal and bolus insulin (7) CAD (coronary artery disease): Plan: s/p CABG Continue Eliquis, aspirin, atorvastatin, metoprolol No acute issues (8) COPD (chronic obstructive pulmonary disease): Plan: COPD- Continue usual inhalers: Anoro Ellipta Plan Disposition-continued stay for diuresis Admission and Anticipated Discharge Date Admission Date: June 21, 2023 Subjective Patient feeling better but remains on 4 L nasal cannula Refusing BiPAP He has no other concerns Telemetry with atrial flutter with rates in the 70s to 100s Physical Exam 2 Constitutional: WD/WN, vitals as above Neck: trachea midline, no thyromegaly Respiratory: normal respiratory effort; no labored breathing and no cough Auscultation: + crackles (Bibasilar) Cardiovascular: RRR, no murmur, no edema Chest (Breasts): Chest: normal inspection of chest Gastrointestinal (Abdomen): normal bowel sounds, soft, nontender, no hepatosplenomegaly Musculoskeletal: Extremities: + extremities abnormal to inspection (Left BKA), no cyanosis and no clubbing Skin: no rashes, warm and dry Neurologic: moves all extremities and awake; no focal motor deficits Psychiatric: A+Ox3, euthymic affect Lymphatic: no lymphedema Results & Data Results & Data Vital Signs (Past 12 Hours) Vital Signs Temp Pulse Pulse Resp BP Pulse Ox O2 Del Method 06/22/23 15:46 37.1 C 99 H 19 117/75 93 Nasal Cannula 06/22/23 10:54 36.5 C 89 24 141/82 H 94 Nasal Cannula 06/22/23 09:45 76 06/22/23 09:45 Nasal Cannula 06/22/23 07:29 36.7 C 77 19 150/87 H 95 Nasal Cannula O2 Flow Rate 06/22/23 15:46 4 06/22/23 10:54 4 06/22/23 09:45 06/22/23 09:45 4 06/22/23 07:29 4 PG Care Time/CCT Total # of Minutes Spent Total Time Spent with Patient: Total time spent is greater than 50% in coordination of care (as documented) at patient's floor/unit and/or counseling patient: Coding Level of Care Code 02395 SUB INP/OBS CARE 2/35MIN Diagnoses Acute on chronic heart failure with preserved ejection fraction (HFpEF) I50.33 Acute on chronic respiratory failure with hypoxia J96.21 PAF (paroxysmal atrial fibrillation) I48.0 Hypertension I10 PE (pulmonary embolism) I26.99 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
[2023-06-22] MEDS ORDERED: diphenhydrAMINE Capsule 25 MG CAP PO ONE (23:05)
[2023-06-23 06:32] LABS: Basophils # (auto) 0.06 K/uL (0-0.2); Basophils % (auto) 0.6 %; Eosinophils # (auto) 0.33 K/uL (0-0.50); Eosinophils % (auto) 3.5 %; Hematocrit (blood only) 48.3 % (42.0-52.0); Hemoglobin 14.3 g/dl (14.0-18.0); Immature Granulocytes # (auto) 0.04 K/uL (0.01-0.20); Immature Granulocytes % (auto) 0.4 %; Lymphocytes # (auto) 2.21 K/uL (1.2-3.4); Lymphocytes % (auto) 23.2 %; Mean Corpuscular Hemoglobin 28.4 pg (25.0-34.0); Mean Corpuscular Hgb Conc 29.6 g/dL (32.0-36.0); Mean Corpuscular Volume 95.8 fL (80.0-100.0); Mean Platelet Volume 10.1 fL (9.4-12.4); Monocytes % (auto) 11.6 %; Neutrophils # (auto) 5.78 K/uL (1.40-6.50); Neutrophils % (auto) 60.7 %; Platelet Count 206 K/uL (130-400); RDW Coefficient of Variation 14.7 % (11.5-14.5); RDW Standard Deviation 52.1 fL (36.4-46.3); Red Blood Count 5.04 M/uL (4.70-6.10); White Blood Count 9.52 K/ul (4.8-10.8)
[2023-06-23 06:48] LABS: Albumin Level 4.1 gm/dl (3.4-5.0); BUN Creatinine Ratio 34.7 (10-20); Creatinine Clr Calc Pharmacy 58.4 ml/min; Est GFR (Non-African American) 56.1 ml/min; Magnesium 2.4 mg/dl (1.7-2.4); Phosphorus 3.8 mg/dl (2.5-4.9); Potassium 4.8 mmol/L (3.5-5.1)
[2023-06-23 07:26] LABS: INR 1.2 (0.9-1.1); Partial Thromboplastin Ratio 1.1; Partial Thromboplastin Time 32.1 Seconds (21.0-31.0); Prothrombin Time 13.2 Seconds (9.0-12.0)
[2023-06-23] MEDS: PANTOprazole 40 MG TAB PO SCH (09:35)
[2023-06-23] MEDS: FOLIC ACID 400 MCG TAB PO SCH (09:35)
[2023-06-23] MEDS: FINASTERIDE 5 MG TAB PO SCH (09:35)
[2023-06-23] MEDS: METOPROLOL SUCC 50MG EXT REL TAB PO SCH ×2 (09:35→20:42)
[2023-06-23] MEDS: APIXABAN 5 MG TABLET PO SCH ×2 (09:35→20:43)
[2023-06-23] MEDS: GABAPENTIN 100 MG CAP PO SCH ×3 (09:35→20:42)
[2023-06-23] MEDS: ASCORBIC ACID 500 MG TAB PO SCH (09:35)
[2023-06-23] MEDS: ASPIRIN 81 MG ECTAB PO SCH (09:35)
[2023-06-23] MEDS: ATORVASTATIN 40 MG TAB PO SCH (09:35)
[2023-06-23] MEDS: SACCHAROMYCES BOULARDII 250 MG CAP PO SCH (09:35)
[2023-06-23] MEDS: UMECLIDINIUM/VILANTEROL 62.5/25MCG 7 PUFFS/INHALER INH SCH (09:36)
[2023-06-23] MEDS: amLODIPine BESYLATE 5 MG TAB PO SCH (09:36)
[2023-06-23] MEDS: acetaZOLAMIDE 250 MG in SYRINGE 0 ML IV SCH (09:39)
[2023-06-23] MEDS: INSULIN ASPART PER UNIT CHARGE SC SCH ×4 (09:39→20:41)
[2023-06-23] MEDS: FUROSEMIDE 40 MG/4 ML VIAL IV SCH (09:40)
--- NOTE | 2023-06-23 19:20 | Hospitalist Progress Note ---
Date of Service June 23, 2023 Assessment & Plan (1) Acute on chronic heart failure with preserved ejection fraction (HFpEF): Plan: Heart failure with preserved EF:at home on torsemide 40 mg daily, sometimes substituting 20 mg daily per patient use. Follows with Dr. Vasquez of [facility] No SGLT2 inhibitor given type 1 diabetes. Diuresing and clinically improving with IV Lasix and acetazolamide--> net negative 2.4L so far, weight down also Give an extra lasix 40mg IV x 1 this evening dc acetazolamide started on admission Continue supplemental O2 to keep pulse ox greater than 90%-May need home O2 Hold lisinopril while diuresing (2) Acute on chronic respiratory failure with hypoxia: Plan: As noted above Pt worried about "becoming addicted to oxygen" and also about use of O2 in his camper where he lives with an open propane gas pilot supervisor light on the wall titrate O2 down as diuresis occurs 2 step walk test prior to discharge (3) Atrial flutter: Plan: With atrial flutter, paroxysmal, was rate controlledbut tachy today as home med rec wrong-should actually be on Toprol XL 100mg bid--> increase dose now Continue apixaban, metoprolol follow on tele (4) Hypertension: Plan: Blood pressures are controlled continue Toprol XL 100mg po bid holding lisinopril while diuresing (5) PE (pulmonary embolism): Plan: Continue Eliquis (6) 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 HgbA1C 7.9% here Hold metformin Continue basal and bolus insulin (7) CAD (coronary artery disease): Plan: s/p PCI and then CABG x 3: No angina Continue Eliquis, aspirin, atorvastatin, and metoprolol but home med rec wrong- he actually takes Toprol XL 100mg bid--> increased to bid which will help his tachycardia (8) COPD (chronic obstructive pulmonary disease): Plan: Continue usual inhalers: Anoro Ellipta (9) S/P AVR (aortic valve replacement): Plan: Aortic stenosis s/p bioprosthetic AVR Plan Disposition-continued stay for diuresis, on tele. Consult PT/OT. Will need 2 step walk test prior to discharge Admission and Anticipated Discharge Date Admission Date: June 21, 2023 Subjective Feeling a little better. Not as SOB. Remains on 4LNC. Is worried about using O2 at home as he has propane gas pilot supervisor light and heater on the wall in the camper where he lives No CP. Tele with aflutter, rates 110s Physical Exam Constitutional: WD/WN, vitals as above Neck: trachea midline, no thyromegaly Respiratory: normal respiratory effort; no labored breathing and no cough Auscultation: + crackles (Bibasilar) Cardiovascular: RRR, no murmur, no edema Chest (Breasts): Chest: normal inspection of chest Gastrointestinal (Abdomen): normal bowel sounds, soft, nontender, no hepatosplenomegaly Musculoskeletal: Extremities: + extremities abnormal to inspection (Left BKA), no cyanosis and no clubbing Skin: no rashes, warm and dry Neurologic: moves all extremities and awake; no focal motor deficits Psychiatric: A+Ox3, euthymic affect Lymphatic: no lymphedema Results & Data Results & Data Vital Signs (Past 12 Hours) Vital Signs Temp Pulse Pulse Resp BP BP Pulse Ox 06/23/23 11:03 36.9 C 114 H 18 130/77 06/23/23 10:58 36.8 C 120 H 97 H 114/77 97 06/23/23 08:00 76 06/23/23 08:00 06/23/23 07:55 37.2 C 60 18 124/83 91 O2 Del Method O2 Flow Rate 06/23/23 11:03 Room Air 4 06/23/23 10:58 Room Air 06/23/23 08:00 06/23/23 08:00 Nasal Cannula 4 06/23/23 07:55 Nasal Cannula 4 Laboratory Results CBC, BMP, magnesium, phosphorus levels reviewed PG Care Time/CCT Total # of Minutes Spent Total Time Spent with Patient: Total time spent is greater than 50% in coordination of care (as documented) at patient's floor/unit and/or counseling patient: Coding Level of Care Code 75245 SUB INP/OBS CARE 2/35MIN Diagnoses Acute on chronic heart failure with preserved ejection fraction (HFpEF) I50.33 Acute on chronic respiratory failure with hypoxia J96.21 Atrial flutter I48.92 Hypertension I10 PE (pulmonary embolism) I26.99 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
[2023-06-23] MEDS ORDERED: FUROSEMIDE 40 MG/4 ML VIAL IV ONE (19:39)
[2023-06-24 07:01] LABS: Albumin Level 3.6 gm/dl (3.4-5.0); Calcium 9.4 mg/dl (8.6-10.3); Creatinine Clr Calc Pharmacy 48.1 ml/min; Est GFR (African American) 51.7 ml/min; Est GFR (Non-African American) 44.6 ml/min; Magnesium 2.2 mg/dl (1.7-2.4); Phosphorus 3.5 mg/dl (2.5-4.9); Potassium 4.5 mmol/L (3.5-5.1)
[2023-06-24] MEDS: ATORVASTATIN 40 MG TAB PO SCH (07:59)
[2023-06-24] MEDS: PANTOprazole 40 MG TAB PO SCH (07:59)
[2023-06-24] MEDS: SACCHAROMYCES BOULARDII 250 MG CAP PO SCH (07:59)
[2023-06-24] MEDS: GABAPENTIN 100 MG CAP PO SCH ×3 (07:59→21:32)
[2023-06-24] MEDS: APIXABAN 5 MG TABLET PO SCH ×2 (07:59→21:33)
[2023-06-24] MEDS: ASCORBIC ACID 500 MG TAB PO SCH (07:59)
[2023-06-24] MEDS: ASPIRIN 81 MG ECTAB PO SCH (08:00)
[2023-06-24] MEDS: amLODIPine BESYLATE 5 MG TAB PO SCH (08:00)
[2023-06-24] MEDS: UMECLIDINIUM/VILANTEROL 62.5/25MCG 7 PUFFS/INHALER INH SCH (08:00)
[2023-06-24] MEDS: FOLIC ACID 400 MCG TAB PO SCH (08:00)
[2023-06-24] MEDS: FINASTERIDE 5 MG TAB PO SCH (08:00)
[2023-06-24] MEDS: INSULIN ASPART PER UNIT CHARGE SC SCH ×4 (08:02→21:33)
[2023-06-24] MEDS: METOPROLOL SUCC 50MG EXT REL TAB PO SCH ×2 (08:06→21:33)
[2023-06-24] MEDS: FUROSEMIDE 40 MG/4 ML VIAL IV SCH (08:06)
--- NOTE | 2023-06-24 08:46 | Electrocardiogram Report ---
Test Reason : Blood Pressure : / mmHG Vent. Rate : 076 BPM Atrial Rate : 228 BPM P-R Int : 000 ms QRS Dur : 088 ms QT Int : 408 ms P-R-T Axes : 000 067 071 degrees QTc Int : 459 ms Atrial flutter with variable A-V block Abnormal ECG When compared with ECG of 02-APR-2022 23:22, No significant change was found Confirmed by Irwin Sheridan ([id number]) on 06/24/2023 8:46:16 AM Referred By: REFERRED SELF Confirmed By:Irwin Sheridan
--- NOTE | 2023-06-24 10:48 | XRay Report ---
XR chest 1V portable HISTORY: 77 years-old Male CHF acute shortness of breath COMPARISON: 06/21/2023 TECHNIQUE: AP view of the chest FINDINGS: Cardiac silhouette is enlarged. Prior median sternotomy. Atherosclerosis of the aorta. Mild pulmonary vascular congestion. No pneumothorax, large pleural effusion or lobar airspace consolidation. Mild s ubsegmental bibasilar atelectasis. Degenerative changes of the shoulders and spine. IMPRESSION: Cardiomegaly with pulmonary vascular congestion. ACT 112: Negative or not required by law. The above report was generated using voice recognition software. It may contain grammatical, syntax o r spelling errors. Electronically signed by: Reynaldo Cantu M.D. 06/24/2023 10:46 AM
--- NOTE | 2023-06-24 15:51 | Hospitalist Progress Note ---
Date of Service June 24, 2023 Assessment & Plan (1) Acute on chronic heart failure with preserved ejection fraction (HFpEF): Plan: Improving with Lasix diuresis. Chest x-ray looks better. He is now on room air. Hopefully he can go home tomorrow, June 25. Hold lisinopril while diuresing (2) Acute on chronic respiratory failure with hypoxia: Plan: Resolved. He is now on room air. Chest x-ray continues to improve (3) Atrial flutter: Plan: Telemetry. Continue metoprolol and Eliquis. Stable. (4) Hypertension: Plan: Stable. Continue Toprol-XL. Resume lisinopril at discharge (5) PE (pulmonary embolism): Plan: Past history. 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 Sliding scale coverage as necessary. Metformin temporarily on hold. Basal insulin coverage . HgbA1C 7.9% (7) CAD (coronary artery disease): Plan: s/p PCI and then CABG x 3: No angina. Stable on Eliquis, aspirin, atorvastatin, and metoprolol. (8) COPD (chronic obstructive pulmonary disease): Plan: Stable. Continue current medical management (9) S/P AVR (aortic valve replacement): Plan: History of aortic stenosis. s/p bioprosthetic AVR Plan Hopeful discharge to home tomorrow, June 25 Admission and Anticipated Discharge Date Admission Date: June 21, 2023 Subjective Alert and oriented. He continues to improve. Lisinopril remains on hold and will be restarted at discharge. Chest x-ray done today, June 24, looks better. CHF has nearly totally resolved. Hopefully he can go home tomorrow, June 25 Review of Systems Review of Systems: Constitutional-no fever or chills ENT-no blurred vision, no double vision, no epistaxis, no sore throat Respiratory-no cough, no wheezing, no shortness of breath Cardiac-no palpitations, no chest pain, no syncope GI-no nausea, vomiting, diarrhea, melena, hematochezia -no urinary retention, no urinary incontinence, no dysuria, no hematuria Musculoskeletal-no joint pain, no muscle tenderness Skin-no bruising, no rashes, no pruritus Neuro-no isolated weakness, no paresthesia, no weakness Psych-no depression, no anxiety Physical Exam Physical Exam: General-alert and oriented x3, no fevers, no chills HEENT-head atraumatic and normocephalic, pupils equal and reactive to light, extraocular muscles intact Neck-no lymphadenopathy or thyromegaly, trachea midline Chest-faint inspiratory rales at the right base. No wheezing or rhonchi Cardiac-regular rate and rhythm, normal S1 and S2 Abdomen-normal bowel sounds, nontender, no hepatosplenomegaly Extremities-no cyanosis, clubbing, or edema Neuro-cranial nerves II through XII intact, motor and sensory function within normal limits, strength symmetrical , no focal deficits Psych-normal affect, normal mood Results & Data Results & Data Vital Signs (Past 12 Hours) Vital Signs Temp Pulse Pulse Resp BP Pulse Ox O2 Del Method 06/24/23 15:40 77 06/24/23 11:30 36.7 C 70 18 110/67 96 Room Air 06/24/23 09:55 Nasal Cannula 06/24/23 08:02 36.8 C 80 20 133/65 97 Room Air 06/24/23 07:39 56 L O2 Flow Rate 06/24/23 15:40 06/24/23 11:30 06/24/23 09:55 4 06/24/23 08:02 06/24/23 07:39 Laboratory Results 06/23/23 05:48 06/24/23 05:52 PG Care Time/CCT Total # of Minutes Spent Total Time Spent with Patient: Total time spent is greater than 50% in coordination of care (as documented) at patient's floor/unit and/or counseling patient: Coding Level of Care Code 36029 SUB INP/OBS CARE 3/50MIN Diagnoses Acute on chronic heart failure with preserved ejection fraction (HFpEF) I50.33 Acute on chronic respiratory failure with hypoxia J96.21 Atrial flutter I48.92 Hypertension I10 PE (pulmonary embolism) I26.99 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
[2023-06-25] MEDS: APIXABAN 5 MG TABLET PO SCH (07:54)
[2023-06-25] MEDS: GABAPENTIN 100 MG CAP PO SCH ×2 (07:55→13:36)
[2023-06-25] MEDS: METOPROLOL SUCC 50MG EXT REL TAB PO SCH (07:55)
[2023-06-25] MEDS: ASPIRIN 81 MG ECTAB PO SCH (07:56)
[2023-06-25] MEDS: UMECLIDINIUM/VILANTEROL 62.5/25MCG 7 PUFFS/INHALER INH SCH (07:56)
[2023-06-25] MEDS: ASCORBIC ACID 500 MG TAB PO SCH (07:57)
[2023-06-25] MEDS: ATORVASTATIN 40 MG TAB PO SCH (07:57)
[2023-06-25] MEDS: SACCHAROMYCES BOULARDII 250 MG CAP PO SCH (07:58)
[2023-06-25] MEDS: PANTOprazole 40 MG TAB PO SCH (07:58)
[2023-06-25] MEDS: FOLIC ACID 400 MCG TAB PO SCH (07:59)
[2023-06-25] MEDS: FINASTERIDE 5 MG TAB PO SCH (07:59)
[2023-06-25] MEDS: amLODIPine BESYLATE 5 MG TAB PO SCH (07:59)
[2023-06-25] MEDS: FUROSEMIDE 40 MG/4 ML VIAL IV SCH (08:00)
[2023-06-25] MEDS: INSULIN ASPART PER UNIT CHARGE SC SCH ×2 (08:08→12:02)
--- NOTE | 2023-06-25 13:53 | Discharge Summary ---
Date of Service June 25, 2023 Admission HPI Per Admitting Provider The patient is a 77-year-old male with past medical history including pulmonary embolism, chronic heart failure with preserved ejection fraction, paroxysmal atrial fibrillation, hypertension, atrial flutter, diabetes mellitus type CAD, COPD, status post CABG, peripheral artery vascular disease, diabetic neuropathy, sleep apnea, history of coronary stent and MRSA. The patient continues to take medications as directed. He has gradually had worsening of shortness of breath over the past couple weeks. Principal Diagnosis Acute on chronic diastolic congestive heart failure, acute on chronic hypoxic respiratory failure Discharge Exam General-alert and oriented x3, no fevers, no chills HEENT-head atraumatic and normocephalic, pupils equal and reactive to light, extraocular muscles intact Neck-no lymphadenopathy or thyromegaly, trachea midline Chest-faint inspiratory rales at the right base. No wheezing or rhonchi Cardiac-regular rate and rhythm, normal S1 and S2 Abdomen-normal bowel sounds, nontender, no hepatosplenomegaly Extremities-no cyanosis, clubbing, or edema Neuro-cranial nerves II through XII intact, motor and sensory function within normal limits, strength symmetrical , no focal deficits Psych-normal affect, normal mood Discharge Data Allergies Allergy/AdvReac Type Severity Reaction Status Date / Time No Known Drug Allergies Allergy 0 Verified 06/21/23 19:39 Consultations 06/21/23 18:53 ED Decision to Admit Stat Hospital Course (1) Acute on chronic heart failure with preserved ejection fraction (HFpEF): Improved with Lasix diuresis. Chest x-ray looks better. He will require 2 L oxygen with ambulation. Lisinopril will be restarted at discharge (2) Acute on chronic respiratory failure with hypoxia: He will require 2 L oxygen with ambulation. Chest x-ray continues to improve (3) Atrial flutter: Telemetry. Continue metoprolol and Eliquis. Stable. (4) Hypertension: Stable. Continue Toprol-XL. Resume lisinopril at discharge (5) PE (pulmonary embolism): Past history. 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 Sliding scale coverage as necessary. Metformin temporarily on hold. Will restart at discharge. Basal insulin coverage . HgbA1C 7.9% (7) CAD (coronary artery disease): s/p PCI and then CABG x 3: No angina. Stable on Eliquis, aspirin, atorvastatin, and metoprolol. (8) COPD (chronic obstructive pulmonary disease): Stable. Continue current medical management (9) S/P AVR (aortic valve replacement): History of aortic stenosis. s/p bioprosthetic AVR Plan Home today, June 25 Total Time Total Time Spent Total Time Spent (In Minutes): 40 minutes Discharge Plan Discharge Items Patient Disposition: Home - Home Health Services Reason For Visit: CHF EXACERBATION Discharge Diagnosis: Acute on chronic diastolic CHF, acute on chronic hypoxic respiratory failure Condition on Discharge: Good Activity: Resume your previous activity Non-emergency contact: Primary Care Provider Call non-emergency contact if: you have any medication questions and your symptoms worsen Follow-up/Referrals: Luan Pelaez MD [Primary Care Provider] - Diet: Regular and Heart Healthy Addtl Attending Provider Instructions: Wear oxygen at 2 L/min per nasal cannula with ambulation. Torsemide has been increased to 40 mg once a day Pending Studies at Discharge: No Stand-Alone Forms: My [facility] [employer], Smoking Cessation Medications and DC Order Prescriptions: New torsemide 40 mg tablet 40 mg PO DAILY Qty: 30 0RF Continued gabapentin 100 mg capsule 100 mg PO TID Qty: 300 3RF finasteride 5 mg tablet 5 mg PO DAILY Qty: 90 3RF (DME) FreeStyle Desean 14 Day Sensor Kit See Rx Instructions .ROUTE .MEDSUPPLY Qty: 6 1RF Rx Instructions: As directed E11.40 Test 4x/day amlodipine 2.5 mg tablet 2.5 mg PO DAILY Qty: 90 0RF atorvastatin 40 mg tablet 40 mg PO DAILY Qty: 90 1RF Eliquis 5 mg tablet 5 mg PO BID Qty: 180 3RF omeprazole 20 mg capsule,delayed release(DR/EC) 20 mg PO DAILY Qty: 90 3RF lisinopril 5 mg tablet 5 mg PO DAILY Qty: 90 3RF Rx Instructions: Per dr 1st Andre FlexTouch U-200 200 unit/mL (3 mL) insulin pen 78 unit SUBCUT HS Qty: 36 1RF (DME) pen needle, diabetic [BD Ultra-Fine Short Pen Needle] 31 gauge x 5/16" needle See Rx Instructions .Route Qty: 100 3RF Rx Instructions: As directed folic acid 800 mcg tablet 0.8 mg PO DAILY ascorbic acid (vitamin C) 1,000 mg tablet 1 gm PO DAILY aspirin 81 mg tablet,delayed release (DR/EC) 81 mg PO DAILY (DME) insulin admin supplies insulin pen See Dose Instructions .ROUTE .MEDSUPPLY Qty: 1 3RF Dose Instruction: As directed Rx Instructions: As directed: use with insulin 3 time a day Ozempic 1 mg/dose (2 mg/1.5 mL) pen injector 1 mg SQ WK Rx Instructions: TAKE THIS MED EVERY SATURDAY (DME) FreeStyle Desean 14 Day [place] Misc See Rx Instructions .ROUTE .MEDSUPPLY Qty: 1 0RF Rx Instructions: As directed E11.40 Test 4x/day (DME) Left prosthetic limb K3 See Rx Instructions .Route .MEDSUPPLY Qty: 1 0RF Rx Instructions: As directed insulin aspart U-100 [Novolog U-100 Insulin aspart] 100 unit/mL solution 18 unit subcut TID Rx Instructions: Inject before meals, Max 48 u SQ /24 hrs metformin 500 mg tablet extended release 24 hr 1,000 mg PO DAILY silver sulfadiazine [Silvadene] 1 % Cream 1 applic TOPICAL DAILY Rx Instructions: apply a 1.5 mm thickness, cover with dry bandage. diphenoxylate-atropine [Lomotil] 2.5-0.025 mg Tablet 1 tab PO BID PRN (Reason: Diarrhea) Saccharomyces boulardii [Florastor] 250 mg Capsule 250 mg PO QAM Anoro Ellipta 62.5-25 mcg/actuation Blister With Device 1 inh INHALATION DAILY metoprolol succinate 100 mg tablet extended release 24 hr 100 mg PO BID Changed torsemide 20 mg tablet 30 mg PO DAILY Qty: 30 0RF Discharge Orders: Discharge Order- CHF (Routine); Ordered 06/25/23 Ordered By: Tre Briggs/Other Patient Handouts: Managing Type 1 Diabetes Admission Data Admit Date/Time: 06/21/23 20:00 Attending Provider: Tre Calvin Admit Provider: Marcus Gregory Primary Care Provider: Luan Pelaez Other Providers: Osorio Cabrera Coding Level of Care Code 87562 INP/OBS DISCH >30 MIN Diagnoses Acute on chronic heart failure with preserved ejection fraction (HFpEF) I50.33 Acute on chronic respiratory failure with hypoxia J96.21 Atrial flutter I48.92 Hypertension I10 PE (pulmonary embolism) I26.99 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
== END 2023-06-25 14:55 | disposition home health service (06) | DRG 291 ==
LOC: ED 16:47 → 2S 20:00 → SUATTDRO 20:00 → 2S 21:09